=== PATIENT | female | born 1930 | race Caucasian/White ===

== ENCOUNTER → 2017-01-30 | Outpatient (CLI) | payer MEDICARE, OTHER ==
[~2017-01-30] MED LIST: ALLO100T30 PO; ATOR10TA9 PO; DIVA250T6 PO; ERGO500017 PO; ISOS60TA36 PO; LISI-167 PO; MULT-717 PO
== END | disposition home or self-care (01) ==
LOC: CVU 07:26
PROVIDERS: ATTEND Internal Medicine Cardiovascular Disease
DX: I65.23 Occlusion and stenosis of bilateral carotid arteries (principal); I71.9 Aortic aneurysm of unspecified site, without rupture; F17.200 Nicotine dependence, unspecified, uncomplicated; I08.3 Combined rheumatic disorders of mitral, aortic and tricuspid valves; I74.5 Embolism and thrombosis of iliac artery
CPT/HCPCS: 93306; 93880; 93978

== ENCOUNTER 2017-02-08 19:40 | Inpatient (IN) | payer MEDICARE, OTHER ==
[~2017-02-08] VITALS: Ht 160 cm; Wt 57.3 kg
[2017-02-08] MEDS ORDERED: ONDANSETRON 2MG/ML, 2ML ONE (20:13)
[2017-02-08] MEDS ORDERED: MORPHINE SULFATE 4 MG/ML, 1ML ONE (20:13)
[2017-02-08] MEDS ORDERED: ONDANSETRON 2MG/ML, 2ML IVPush ONE (20:30)
[2017-02-08] MEDS ORDERED: SODIUM CHLORIDE 0.9% 1,000ML IVBOLUS ONE (20:30)
[2017-02-08] MEDS ORDERED: MORPHINE SULFATE 4 MG/ML, 1ML IVPush PRN (20:30)
[2017-02-08 21:16] LABS: ASPARTATE AMINO TRANSFERASE 54 U/L (15-37); BLOOD UREA NITROGEN 19 mg/dL (7-18)
[2017-02-08 21:24] LABS: LARGE PLATELETS 1+
[2017-02-08] MEDS ORDERED: CARV3.122 PO (21:44)
[2017-02-08] MEDS ORDERED: GABA300C10 PO (21:44)
[2017-02-08] MEDS ORDERED: AMLO5TAB2 PO (21:44)
[2017-02-08] MEDS ORDERED: LISI40TA PO (21:44)
[2017-02-08 22:15] LABS: PATH.CAST-FLAG NOT PRESENT; SPERM-FLAG NOT PRESENT; SRC-FLAG NOT PRESENT; XTAL-FLAG NOT PRESENT; YLC-FLAG NOT PRESENT
[2017-02-09] VITALS: BP 124/79
[2017-02-09] MEDS ORDERED: TRAZODONE 50MG TABLET PO PRN (01:00)
[2017-02-09] MEDS ORDERED: MORPHINE SULFATE 4 MG/ML, 1ML IVPush PRN (01:00)
[2017-02-09] MEDS ORDERED: GUAIFENESIN/DM 200-20MG, 10ML UDC PO PRN (01:00)
[2017-02-09] MEDS ORDERED: ONDANSETRON 2MG/ML, 2ML IVP PRN (01:00)
[2017-02-09] MEDS: SODIUM CHLORIDE 0.9% 1,000 ML IV SCH ×2 (01:03→12:44)
[2017-02-09] MEDS: GABAPENTIN 300 MG CAPSULE PO SCH ×4 (01:03→23:06)
[2017-02-09 04:14] VITALS: BP 120/74
[2017-02-09 05:27] LABS: BLOOD UREA NITROGEN 26 mg/dL (7-18)
[2017-02-09 08:42] VITALS: BP 129/84
[2017-02-09] MEDS: FAMOTIDINE 20 MG TABLET PO SCH ×2 (09:38→23:07)
[2017-02-09] MEDS: LISINOPRIL 20 MG TABLET PO SCH (09:39)
[2017-02-09] MEDS: MULTIVITAMIN 1 TABLET PO SCH (09:40)
[2017-02-09] MEDS: CARVEDILOL 3.125 MG TABLET PO SCH ×2 (09:40→23:42)
[2017-02-09] MEDS: ISOSORBIDE MONONITRATE ER 60 MG TABLET PO SCH (09:40)
[2017-02-09] MEDS: DIVALPROEX 250 MG TABLET.DR PO SCH ×2 (09:40→23:40)
[2017-02-09] MEDS: ALLOPURINOL 100 MG TABLET PO SCH (09:41)
[2017-02-09] MEDS: AMLODIPINE 5 MG TABLET PO SCH (09:41)
[2017-02-09] MEDS: HYDROcodone/APAP 5/325 TABLET PO PRN ×2 (09:42→16:29)
[2017-02-09 12:54] VITALS: BP 126/80
[2017-02-09 19:27] VITALS: BP 96/63
[2017-02-09] MEDS: ATORVASTATIN 10 MG TABLET PO SCH (23:03)
[2017-02-09 23:21] VITALS: BP 116/72
[2017-02-10 02:37] VITALS: BP 116/73
[2017-02-10 09:16] VITALS: BP 108/72
[2017-02-10] MEDS: MULTIVITAMIN 1 TABLET PO SCH (09:24)
[2017-02-10] MEDS: ALLOPURINOL 100 MG TABLET PO SCH (09:24)
[2017-02-10] MEDS: ISOSORBIDE MONONITRATE ER 60 MG TABLET PO SCH (09:24)
[2017-02-10] MEDS: GABAPENTIN 300 MG CAPSULE PO SCH ×3 (09:24→19:52)
[2017-02-10] MEDS: CARVEDILOL 3.125 MG TABLET PO SCH ×2 (09:25→19:53)
[2017-02-10] MEDS: FAMOTIDINE 20 MG TABLET PO SCH ×2 (09:26→19:52)
[2017-02-10] MEDS: DIVALPROEX 250 MG TABLET.DR PO SCH ×2 (09:26→19:52)
[2017-02-10] MEDS: AMLODIPINE 5 MG TABLET PO SCH (09:26)
[2017-02-10] MEDS: LISINOPRIL 20 MG TABLET PO SCH (09:27)
[2017-02-10 13:33] VITALS: BP 95/57
[2017-02-10 19:32] VITALS: BP 100/63
[2017-02-10] MEDS: ATORVASTATIN 10 MG TABLET PO SCH (19:52)
[2017-02-11 02:29] VITALS: BP 94/54
[2017-02-11] MEDS: HYDROcodone/APAP 5/325 TABLET PO PRN ×2 (04:17→09:05)
[2017-02-11 05:45] LABS: BLOOD UREA NITROGEN 23 mg/dL (7-18)
[2017-02-11 06:50] VITALS: BP 92/56
[2017-02-11] MEDS: CARVEDILOL 3.125 MG TABLET PO SCH (09:00)
[2017-02-11] MEDS: ISOSORBIDE MONONITRATE ER 60 MG TABLET PO SCH (09:00)
[2017-02-11] MEDS: LISINOPRIL 20 MG TABLET PO SCH (09:00)
[2017-02-11 09:02] VITALS: BP 94/53
[2017-02-11] MEDS: ALLOPURINOL 100 MG TABLET PO SCH (09:05)
[2017-02-11] MEDS: GABAPENTIN 300 MG CAPSULE PO SCH ×2 (09:05→16:00)
[2017-02-11] MEDS: FAMOTIDINE 20 MG TABLET PO SCH (09:06)
[2017-02-11] MEDS: MULTIVITAMIN 1 TABLET PO SCH (09:06)
[2017-02-11] MEDS: AMLODIPINE 5 MG TABLET PO SCH (09:06)
[2017-02-11] MEDS: DIVALPROEX 250 MG TABLET.DR PO SCH (09:06)
[2017-02-11] MEDS ORDERED: HYDR-3240 PO (11:13)
[2017-02-11] MEDS ORDERED: DOCU-30 PO (11:14)
[2017-02-11] MEDS ORDERED: ENOX40SY4 SQ (11:15)
[2017-02-11] MEDS: DOCUSATE 100 MG CAPSULE PO SCH (12:18)
[2017-02-11] MEDS: ENOXAPARIN 40 MG/0.4 ML SQ SCH (12:18)
[2017-02-11 13:36] VITALS: BP 99/62
[2017-02-11 19:57] VITALS: BP 160/95
[2017-02-12] MEDS: FAMOTIDINE 20 MG TABLET PO SCH ×2 (00:18→08:58)
[2017-02-12] MEDS: DOCUSATE 100 MG CAPSULE PO SCH ×2 (00:18→08:56)
[2017-02-12] MEDS: HYDROcodone/APAP 5/325 TABLET PO PRN ×2 (00:18→11:43)
[2017-02-12] MEDS: GABAPENTIN 300 MG CAPSULE PO SCH ×2 (00:18→08:57)
[2017-02-12] MEDS: DIVALPROEX 250 MG TABLET.DR PO SCH ×2 (00:19→08:57)
[2017-02-12] MEDS: ATORVASTATIN 10 MG TABLET PO SCH (00:19)
[2017-02-12] MEDS: CARVEDILOL 3.125 MG TABLET PO SCH ×2 (00:19→08:56)
[2017-02-12 02:03] VITALS: BP_SYST 85; BP_SYST 88; BP_DIAS 52; BP_DIAS 54
[2017-02-12 02:20] VITALS: BP 95/56
[2017-02-12 04:25] VITALS: BP 121/71
[2017-02-12 07:26] VITALS: BP 101/67
[2017-02-12] MEDS: ISOSORBIDE MONONITRATE ER 60 MG TABLET PO SCH (08:57)
[2017-02-12] MEDS: MULTIVITAMIN 1 TABLET PO SCH (08:58)
[2017-02-12] MEDS: LISINOPRIL 20 MG TABLET PO SCH (08:59)
[2017-02-12] MEDS: AMLODIPINE 5 MG TABLET PO SCH (08:59)
[2017-02-12] MEDS: ALLOPURINOL 100 MG TABLET PO SCH (09:00)
[2017-02-12] MEDS ORDERED: ERGOCALCIFEROL 50,000 UNIT CAPSULE PO SCH (09:00)
[2017-02-12] MEDS: ENOXAPARIN 40 MG/0.4 ML SQ SCH (11:44)
[2017-02-12 13:08] VITALS: BP 92/47
[2017-02-19] MEDS ORDERED: LACT1CAP35 PO (18:18)
[2017-02-19] MEDS ORDERED: NITR100C56 PO (18:18)
[2017-02-19] MEDS ORDERED: MULT-108 PO (18:18)
[2017-02-25] MEDS ORDERED: GUAI600T22 PO (10:30)
[2017-02-25] MEDS ORDERED: AMPI3VIA IV (10:30)
[2017-02-25] MEDS ORDERED: PRED20TA PO (10:30)
== END 2017-02-12 15:15 | DRG 535 ==
LOC: ED 22:08 → EDIP 22:28 → 4NOR 23:40
PROVIDERS: ADMIT Internal Medicine; ATTEND Internal Medicine
PROC: 0T9B70Z Drainage of Bladder with Drainage Device, Via Natural or Artificial Opening (ICD-10-PCS; principal; 2017-02-08)
DX: S32.810A Multiple fractures of pelvis with stable disruption of pelvic ring, initial encounter for closed fracture (principal); K66.1 Hemoperitoneum; S32.19XA Other fracture of sacrum, initial encounter for closed fracture; E87.1 Hypo-osmolality and hyponatremia; I10 Essential (primary) hypertension; D69.6 Thrombocytopenia, unspecified; E78.5 Hyperlipidemia, unspecified; F17.210 Nicotine dependence, cigarettes, uncomplicated; G89.29 Other chronic pain; K59.00 Constipation, unspecified; M41.86 Other forms of scoliosis, lumbar region; M43.12 Spondylolisthesis, cervical region; M46.90 Unspecified inflammatory spondylopathy, site unspecified; W01.0XXA Fall on same level from slipping, tripping and stumbling without subsequent striking against object, initial encounter; Z82.49 Family history of ischemic heart disease and other diseases of the circulatory system; Y92.009 Unspecified place in unspecified non-institutional (private) residence as the place of occurrence of the external cause; Z88.8 Allergy status to other drugs, medicaments and biological substances; Y93.89 Activity, other specified; Y99.8 Other external cause status
CPT/HCPCS: 36415; 70450; 71010; 72110; 72125; 72190; 72192; 80048; 80053; 81001; 85025; 93005; 96374; 96375; J1650; J2405; J7030

== ENCOUNTER 2017-07-13 13:24 | Inpatient (IN) | payer MEDICARE, OTHER ==
[~2017-07-13] VITALS: Ht 160 cm; Wt 58.7 kg
[~2017-07-13 13:24] MED LIST changes: +AMLO5TAB2 PO; +AMPI3VIA IV; +CARV3.122 PO; +DOCU-131 PO; +ENOX40SY4 SQ; +GABA300C10 PO; +GUAI600T31 PO; +HYDR-3240 PO; +LACT1CAP35 PO; +LISI40TA PO; +MULT-108 PO; +NITR100C56 PO; +PRED20TA PO
[2017-07-13 14:03] LABS: HEMATOCRIT 46.2 % (34.6-47.8); HEMOGLOBIN 15.1 g/dL (11.7-16.4)
[2017-07-13 14:12] LABS: BLOOD UREA NITROGEN 9 mg/dL (7-18)
[2017-07-13] MEDS ORDERED: MORPHINE SULFATE 4 MG/ML, 1ML ONE (14:54)
[2017-07-13] MEDS ORDERED: ONDANSETRON 2MG/ML, 2ML ONE (14:54)
[2017-07-13] MEDS ORDERED: ONDANSETRON 2MG/ML, 2ML IVPush ONE (15:00)
[2017-07-13] MEDS ORDERED: morphine SULFATE 10 MG/ML, 1ML IVPush ONE (15:00)
[2017-07-13 17:00] VITALS: BP 212/115
[2017-07-13] MEDS ORDERED: ONDANSETRON ODT 4 MG PO PRN (17:00)
[2017-07-13] MEDS ORDERED: POLYETHYLENE GLYCOL 17 GM PACKET PO PRN (17:00)
[2017-07-13] MEDS ORDERED: GUAIFENESIN/DM 200-20MG, 10ML UDC PO PRN (17:00)
[2017-07-13] MEDS ORDERED: ONDANSETRON 2MG/ML, 2ML IVPush PRN ×2 (17:00→21:30)
[2017-07-13] MEDS ORDERED: LABETALOL 5MG/ML, 20ML IVPush PRN (17:00)
[2017-07-13 17:13] VITALS: BP 212/120
[2017-07-13] MEDS ORDERED: POTASSIUM CHLORIDE 20 MEQ, MAGNESIUM SULFATE 1 GM, FOLIC ACID 1 MG, THIAMINE 100 MG, MV... IV SCH (17:30)
[2017-07-13] MEDS ORDERED: ALBUTEROL/IPRATROPIUM 2.5MG/0.5MG, 3 ML NPPB PRN (17:30)
[2017-07-13] MEDS: morphine SULFATE 10 MG/ML, 1ML IVPush PRN (17:37)
[2017-07-13] MEDS ORDERED: FENTANYL PF 100 MCG/2ML ONE (19:07)
[2017-07-13] MEDS ORDERED: MIDAZOLAM 1 MG/ML, 2ML ONE (19:07)
[2017-07-13] MEDS ORDERED: CEFAZOLIN 1,000 MG ONE (19:08)
[2017-07-13] MEDS ORDERED: PROPOFOL 10 MG/ML, 20ML ONE (19:08)
[2017-07-13] MEDS ORDERED: EPHEDRINE 50 MG/ML, 1ML ONE (19:08)
[2017-07-13] MEDS: CEFAZOLIN PMX 1GM/50ML 50 ML IV SCH (19:15)
[2017-07-13] MEDS ORDERED: ROPIvacaine/PF 0.5%, 30 ML ONE (19:45)
[2017-07-13] MEDS ORDERED: KETOROLAC 60 MG/2 ML ONE (19:45)
[2017-07-13] MEDS ORDERED: EPINEPHRINE 1 MG/ML, 1ML ONE (19:45)
[2017-07-13] MEDS ORDERED: ROPIvacaine/PF 0.5%, 20 ML ONE (19:45)
[2017-07-13] MEDS ORDERED: VANCOMYCIN 1,000 MG ONE (19:45)
[2017-07-13] MEDS ORDERED: TRANEXAMIC ACID 100 MG/ML, 10ML ONE (19:45)
[2017-07-13] MEDS: CARVEDILOL 3.125 MG TABLET PO SCH (21:00)
[2017-07-13] MEDS: ASPIRIN 81 MG TABLET CHEW PO SCH (21:00)
[2017-07-13] MEDS ORDERED: FENTANYL PF 100 MCG/2ML IV PRN (21:30)
[2017-07-13] MEDS ORDERED: morphine SULFATE 10 MG/ML, 1ML IV PRN (21:30)
[2017-07-13] MEDS ORDERED: hydrALAzine 20 MG/ML, 1ML IV PRN (21:30)
[2017-07-13] MEDS ORDERED: ACETAMINOPHEN 325 MG TABLET PO PRN (21:30)
[2017-07-13] MEDS ORDERED: LABETALOL 5MG/ML, 20ML IV PRN (21:30)
[2017-07-13] MEDS ORDERED: HYDROcodone/APAP 7.5-325MG/15ML UDC PO PRN (21:30)
[2017-07-13] MEDS ORDERED: OXYcodone 5 MG/5 ML ORAL.SOL UDC PO PRN (21:30)
[2017-07-13] MEDS ORDERED: OXYcodone 5 MG/5 ML ORAL.SOL UDC ONE (21:43)
[2017-07-13] MEDS ORDERED: ACETAMINOPHEN 650 MG/20.3 ML UDC ONE (21:43)
[2017-07-13 23:00] VITALS: BP 89/66
[2017-07-14] MEDS: GABAPENTIN 300 MG CAPSULE PO SCH ×4 (00:17→22:37)
[2017-07-14] MEDS: DIVALPROEX 250 MG TABLET.DR PO SCH ×3 (00:17→22:38)
[2017-07-14] MEDS: ATORVASTATIN 10 MG TABLET PO SCH ×2 (00:17→22:37)
[2017-07-14] MEDS: morphine SULFATE 10 MG/ML, 1ML IVPush PRN ×2 (03:34→10:44)
[2017-07-14] MEDS: CEFAZOLIN PMX 1GM/50ML 50 ML IV SCH (03:34)
[2017-07-14 03:40] VITALS: BP 104/61
[2017-07-14 05:55] LABS: HEMATOCRIT 41.4 % (34.6-47.8); HEMOGLOBIN 13.9 g/dL (11.7-16.4); WHITE BLOOD COUNT 7.9 x10^3/uL (3.4-10)
[2017-07-14 06:13] LABS: ASPARTATE AMINO TRANSFERASE 19 U/L (15-37); BLOOD UREA NITROGEN 13 mg/dL (7-18)
[2017-07-14 06:47] VITALS: BP 91/49
[2017-07-14] MEDS ORDERED: SENNA/DOCUSATE TABLET PO SCH (09:00)
[2017-07-14] MEDS ORDERED: ISOSORBIDE MONONITRATE ER 60 MG TABLET PO SCH (09:00)
[2017-07-14] MEDS: CARVEDILOL 3.125 MG TABLET PO SCH ×2 (09:00→21:00)
[2017-07-14] MEDS ORDERED: LISINOPRIL 20 MG TABLET PO SCH (09:00)
[2017-07-14] MEDS: FOLIC ACID 1 MG TABLET PO SCH (11:27)
[2017-07-14] MEDS: SENNA/DOCUSATE TABLET PO SCH (11:29)
[2017-07-14] MEDS: THIAMINE 100MG TABLET PO SCH (11:30)
[2017-07-14] MEDS: ASPIRIN 81 MG TABLET CHEW PO SCH ×2 (11:30→22:38)
[2017-07-14] MEDS: ALLOPURINOL 100 MG TABLET PO SCH (11:34)
[2017-07-14 13:45] VITALS: BP 90/53
[2017-07-14] MEDS ORDERED: PHARMACY MAY ADJ FOR RENAL FX MC PRN (16:00)
[2017-07-14] MEDS ORDERED: LORazepam 1MG TABLET PO PRN ×4 (16:00)
[2017-07-14] MEDS ORDERED: LORazepam 0.5MG TABLET PO PRN (16:00)
[2017-07-14] MEDS ORDERED: LORazepam 2 MG/ML, 1ML IV PRN ×5 (16:00)
[2017-07-14 20:54] VITALS: BP 91/55
[2017-07-15 02:18] VITALS: BP 91/48
[2017-07-15 05:31] LABS: HEMATOCRIT 36.2 % (34.6-47.8); HEMOGLOBIN 12.2 g/dL (11.7-16.4); WHITE BLOOD COUNT 6.4 x10^3/uL (3.4-10)
[2017-07-15 05:49] LABS: BLOOD UREA NITROGEN 26 mg/dL (7-18)
[2017-07-15 07:05] VITALS: BP 91/46
[2017-07-15] MEDS: ASPIRIN 81 MG TABLET CHEW PO SCH ×2 (08:02→20:31)
[2017-07-15] MEDS: FOLIC ACID 1 MG TABLET PO SCH (08:02)
[2017-07-15] MEDS: DIVALPROEX 250 MG TABLET.DR PO SCH ×2 (08:02→20:31)
[2017-07-15] MEDS: SENNA/DOCUSATE TABLET PO SCH (08:03)
[2017-07-15] MEDS: GABAPENTIN 300 MG CAPSULE PO SCH (08:03)
[2017-07-15] MEDS: ALLOPURINOL 100 MG TABLET PO SCH (08:03)
[2017-07-15] MEDS: THIAMINE 100MG TABLET PO SCH (08:03)
[2017-07-15] MEDS: ISOSORBIDE MONONITRATE ER 60 MG TABLET PO SCH (08:03)
[2017-07-15] MEDS: CARVEDILOL 3.125 MG TABLET PO SCH ×2 (08:03→20:32)
[2017-07-15] MEDS: HYDROcodone/APAP 5/325 TABLET PO PRN (08:06)
[2017-07-15] MEDS ORDERED: MAGNESIUM SULFATE PMX 2GM/50ML 50 ML IV ONE (10:00)
[2017-07-15] MEDS: SODIUM CHLORIDE 0.9% 250 ML IV SCH ×2 (10:51→11:00)
[2017-07-15 14:04] VITALS: BP 100/62
[2017-07-15] MEDS: GABAPENTIN 100 MG CAPSULE PO SCH ×2 (16:27→20:31)
[2017-07-15 19:10] VITALS: BP 132/83
[2017-07-15] MEDS: ATORVASTATIN 10 MG TABLET PO SCH (20:31)
[2017-07-15] MEDS: SODIUM CHLORIDE 0.9% 1,000 ML IV SCH (20:31)
[2017-07-16 02:00] VITALS: BP 146/82
[2017-07-16 05:34] LABS: BLOOD UREA NITROGEN 38 mg/dL (7-18)
[2017-07-16 05:45] LABS: HEMATOCRIT 31.8 % (34.6-47.8); HEMOGLOBIN 10.8 g/dL (11.7-16.4); WHITE BLOOD COUNT 9.5 x10^3/uL (3.4-10)
[2017-07-16] MEDS: FOLIC ACID 1 MG TABLET PO SCH (07:29)
[2017-07-16] MEDS: DIVALPROEX 250 MG TABLET.DR PO SCH ×2 (07:29→20:49)
[2017-07-16] MEDS: HYDROcodone/APAP 5/325 TABLET PO PRN ×2 (07:29→20:49)
[2017-07-16] MEDS: ISOSORBIDE MONONITRATE ER 60 MG TABLET PO SCH (07:29)
[2017-07-16] MEDS: ALLOPURINOL 100 MG TABLET PO SCH (07:29)
[2017-07-16] MEDS: THIAMINE 100MG TABLET PO SCH (07:29)
[2017-07-16] MEDS: CARVEDILOL 3.125 MG TABLET PO SCH ×2 (07:30→20:49)
[2017-07-16] MEDS: SODIUM CHLORIDE 0.9% 1,000 ML IV SCH ×2 (07:30→20:50)
[2017-07-16] MEDS: ASPIRIN 81 MG TABLET CHEW PO SCH ×2 (07:30→20:49)
[2017-07-16] MEDS: SENNA/DOCUSATE TABLET PO SCH (07:33)
[2017-07-16] MEDS: GABAPENTIN 100 MG CAPSULE PO SCH ×3 (07:33→20:49)
[2017-07-16 07:50] VITALS: BP 146/84
[2017-07-16 13:35] VITALS: BP 120/69
[2017-07-16 20:00] VITALS: BP 164/92
[2017-07-16] MEDS: ATORVASTATIN 10 MG TABLET PO SCH (20:49)
[2017-07-17 04:17] VITALS: BP 170/96
[2017-07-17 05:50] LABS: HEMOGLOBIN 10.3 g/dL (11.7-16.4); WHITE BLOOD COUNT 10.4 x10^3/uL (3.4-10)
[2017-07-17 05:55] LABS: BLOOD UREA NITROGEN 33 mg/dL (7-18)
[2017-07-17 06:55] VITALS: BP 156/89
[2017-07-17] MEDS: ALLOPURINOL 100 MG TABLET PO SCH (07:31)
[2017-07-17] MEDS: SENNA/DOCUSATE TABLET PO SCH (07:31)
[2017-07-17] MEDS: ASPIRIN 81 MG TABLET CHEW PO SCH ×2 (07:32→20:33)
[2017-07-17] MEDS: CARVEDILOL 3.125 MG TABLET PO SCH ×2 (07:32→20:34)
[2017-07-17] MEDS: HYDROcodone/APAP 5/325 TABLET PO PRN ×3 (07:32→16:12)
[2017-07-17] MEDS: GABAPENTIN 100 MG CAPSULE PO SCH ×3 (07:32→20:34)
[2017-07-17] MEDS: ISOSORBIDE MONONITRATE ER 60 MG TABLET PO SCH (07:32)
[2017-07-17] MEDS: DIVALPROEX 250 MG TABLET.DR PO SCH ×2 (07:32→20:34)
[2017-07-17] MEDS: SODIUM CHLORIDE 0.9% 1,000 ML IV SCH (07:35)
[2017-07-17] MEDS: FOLIC ACID 1 MG TABLET PO SCH (07:35)
[2017-07-17] MEDS: THIAMINE 100MG TABLET PO SCH (07:35)
[2017-07-17 14:29] VITALS: BP 118/76
[2017-07-17] MEDS ORDERED: CEFTRIAXONE PMX 1GM/50ML 50 ML IV SCH (17:00)
[2017-07-17 19:17] VITALS: BP 137/79
[2017-07-17] MEDS: ATORVASTATIN 10 MG TABLET PO SCH (20:34)
[2017-07-18 02:00] VITALS: BP 193/89
[2017-07-18 06:21] LABS: HEMATOCRIT 29.3 % (34.6-47.8); HEMOGLOBIN 9.8 g/dL (11.7-16.4); WHITE BLOOD COUNT 9.7 x10^3/uL (3.4-10)
[2017-07-18 06:30] LABS: BLOOD UREA NITROGEN 25 mg/dL (7-18)
[2017-07-18 08:10] VITALS: BP 160/83
[2017-07-18] MEDS ORDERED: FUROSEMIDE 20 MG TABLET PO SCH (09:00)
[2017-07-18] MEDS: SENNA/DOCUSATE TABLET PO SCH (09:52)
[2017-07-18] MEDS: FOLIC ACID 1 MG TABLET PO SCH (09:52)
[2017-07-18] MEDS: DIVALPROEX 250 MG TABLET.DR PO SCH (09:52)
[2017-07-18] MEDS: GABAPENTIN 100 MG CAPSULE PO SCH ×2 (09:52→16:00)
[2017-07-18] MEDS: THIAMINE 100MG TABLET PO SCH (09:52)
[2017-07-18] MEDS: ISOSORBIDE MONONITRATE ER 60 MG TABLET PO SCH (09:52)
[2017-07-18] MEDS: ALLOPURINOL 100 MG TABLET PO SCH (09:52)
[2017-07-18] MEDS: CARVEDILOL 3.125 MG TABLET PO SCH (09:53)
[2017-07-18] MEDS: ASPIRIN 81 MG TABLET CHEW PO SCH (09:53)
[2017-07-18] MEDS ORDERED: GABA-826 PO (10:31)
[2017-07-18] MEDS ORDERED: FOLI-17 PO (10:31)
[2017-07-18] MEDS ORDERED: FURO20TA3 PO (10:31)
[2017-07-18] MEDS ORDERED: ASPI-515 PO (10:31)
[2017-07-18] MEDS ORDERED: THIA100T6 PO (10:31)
[2017-07-18] MEDS ORDERED: CEFD300C37 PO (10:33)
[2017-07-18 12:30] VITALS: BP 159/98
[2017-07-18 15:45] VITALS: BP 143/96
== END 2017-07-18 16:12 | DRG 469 ==
LOC: OR 15:08 → 4NOR 15:10 → OR 15:34 → 4NOR 16:11 → OR 16:58 → 4WST 18:38
PROVIDERS: ADMIT Hospitalist; ATTEND Hospitalist
PROC: 0SR90J9 Replacement of Right Hip Joint with Synthetic Substitute, Cemented, Open Approach (ICD-10-PCS; principal; 2017-07-13 19:00)
DX: S72.001A Fracture of unspecified part of neck of right femur, initial encounter for closed fracture (principal); N17.0 Acute kidney failure with tubular necrosis; I50.30 Unspecified diastolic (congestive) heart failure; E87.1 Hypo-osmolality and hyponatremia; N39.0 Urinary tract infection, site not specified; I11.0 Hypertensive heart disease with heart failure; J44.9 Chronic obstructive pulmonary disease, unspecified; Z96.649 Presence of unspecified artificial hip joint; W07.XXXA Fall from chair, initial encounter; M10.9 Gout, unspecified; F17.200 Nicotine dependence, unspecified, uncomplicated; I71.4 Abdominal aortic aneurysm, without rupture; E78.5 Hyperlipidemia, unspecified; F10.10 Alcohol abuse, uncomplicated; F17.210 Nicotine dependence, cigarettes, uncomplicated; F41.1 Generalized anxiety disorder; G40.909 Epilepsy, unspecified, not intractable, without status epilepticus; K21.9 Gastro-esophageal reflux disease without esophagitis; Z96.641 Presence of right artificial hip joint; Z96.652 Presence of left artificial knee joint; Z90.710 Acquired absence of both cervix and uterus
CPT/HCPCS: 36415; 70450; 71010; 72170; 76001; 76770; 80048; 80053; 80307; 81001; 82040; 82570; 83735; 84300; 84439; 85025; 85610; 85730; 87077; 87086; 87186; 93005; 93306; 94640; 96374; 96375; C1713; J0171; J0690; J0696; J1885; J2250; J2405; J2704; J2795; J3010; J3370; J3411; J3475; J3480; J7042; J7620; C1762; C1776; G0479; J2270; J7030; J7050; J7512

== ENCOUNTER 2017-07-25 16:40 | Inpatient (IN) | payer MEDICARE, OTHER ==
[~2017-07-25] VITALS: Ht 160 cm; Wt 62.0 kg
[~2017-07-25 16:40] MED LIST changes: +ASPI-515 PO; +CEFD300C37 PO; +FOLI-17 PO; +FURO20TA3 PO; +GABA-826 PO; +THIA100T6 PO
[2017-07-25 17:47] VITALS: BP 120/79
[2017-07-25] MEDS ORDERED: TRANEXAMIC ACID 100 MG/ML, 10ML ONE ×3 (18:54→20:18)
[2017-07-25] MEDS ORDERED: VANCOMYCIN 1,000 MG ONE (18:54)
[2017-07-25] MEDS ORDERED: PLEASE ENTER HEIGHT AND WEIGHT MC SCH ×2 (19:30→20:00)
[2017-07-25] MEDS ORDERED: DIPHENHYDRAMINE 25 MG CAPSULE PO PRN (19:30)
[2017-07-25] MEDS ORDERED: BISACODYL 10 MG SUPP PR PRN (19:30)
[2017-07-25] MEDS ORDERED: ZOLPIDEM 5MG TABLET PO PRN (19:30)
[2017-07-25] MEDS ORDERED: ACETAMINOPHEN 650 MG/20.3 ML UDC PO PRN (19:30)
[2017-07-25] MEDS ORDERED: ONDANSETRON 2MG/ML, 2ML IVPush PRN ×2 (19:30→21:00)
[2017-07-25] MEDS ORDERED: ONDANSETRON 4 MG TABLET PO PRN (19:30)
[2017-07-25] MEDS ORDERED: OXYcodone 5 MG/5 ML ORAL.SOL UDC PO PRN ×2 (19:30→21:00)
[2017-07-25] MEDS ORDERED: MAGNESIUM HYDROXIDE 8%, 30ML UDC PO PRN (19:30)
[2017-07-25] MEDS ORDERED: ONDANSETRON 2MG/ML, 2ML IV PRN (19:30)
[2017-07-25] MEDS ORDERED: SENNA/DOCUSATE TABLET PO PRN (19:30)
[2017-07-25] MEDS ORDERED: HYDROcodone/APAP 7.5-325MG/15ML UDC PO PRN (19:30)
[2017-07-25] MEDS ORDERED: HYDROmorphone 1 MG/ML, 1ML IV PRN (19:30)
[2017-07-25] MEDS ORDERED: HYDROcodone/APAP 5/325 TABLET PO PRN (19:30)
[2017-07-25] MEDS ORDERED: ACETAMINOPHEN 325 MG TABLET PO PRN ×2 (19:30→21:00)
[2017-07-25] MEDS ORDERED: EPINEPHRINE 1 MG/ML, 1ML ONE (19:38)
[2017-07-25] MEDS ORDERED: KETOROLAC 60 MG/2 ML ONE (19:38)
[2017-07-25] MEDS ORDERED: ROPIvacaine/PF 0.5%, 30 ML ONE (19:39)
[2017-07-25] MEDS ORDERED: FENTANYL PF 250 MCG/5ML ONE (19:41)
[2017-07-25] MEDS ORDERED: ONDANSETRON 2MG/ML, 2ML ONE (19:41)
[2017-07-25] MEDS ORDERED: GLYCOPYRROLATE 0.4 MG/2 ML, 2ML ONE (19:41)
[2017-07-25] MEDS ORDERED: SUCCINYLCHOLINE 20 MG/ML, 10ML ONE (19:41)
[2017-07-25] MEDS ORDERED: PHENYLEPHRINE 10 MG/ML ONE (19:41)
[2017-07-25] MEDS ORDERED: CEFAZOLIN 1,000 MG ONE (19:41)
[2017-07-25] MEDS ORDERED: PROPOFOL 10 MG/ML, 20ML ONE (19:41)
[2017-07-25] MEDS: CEFAZOLIN PMX 2GM/50ML 50 ML IVPB SCH (19:50)
[2017-07-25] MEDS ORDERED: VANCOMYCIN 1,100 MG in SODIUM CHLORIDE 0.9% 250 ML IV ONE (20:01)
[2017-07-25] MEDS ORDERED: hydrALAzine 20 MG/ML, 1ML IV PRN (21:00)
[2017-07-25] MEDS ORDERED: MORPHINE SULFATE 4 MG/ML, 1ML ONE (21:00)
[2017-07-25] MEDS ORDERED: FENTANYL PF 100 MCG/2ML IV PRN (21:00)
[2017-07-25] MEDS ORDERED: DOCUSATE 100 MG CAPSULE PO SCH (21:00)
[2017-07-25] MEDS: CARVEDILOL 3.125 MG TABLET PO SCH (21:00)
[2017-07-25] MEDS: morphine SULFATE 10 MG/ML, 1ML IV PRN ×2 (21:01→21:10)
[2017-07-25] MEDS: LABETALOL 5MG/ML, 20ML IV PRN ×3 (21:10→21:30)
[2017-07-25] MEDS ORDERED: OXYcodone 5 MG/5 ML ORAL.SOL UDC ONE (21:17)
[2017-07-25] MEDS ORDERED: FENTANYL PF 100 MCG/2ML ONE (21:29)
[2017-07-25] MEDS: FENTANYL PF 100 MCG/2ML IV PRN ×2 (21:30→21:35)
[2017-07-25 22:09] VITALS: BP 141/85
[2017-07-26] MEDS: ATORVASTATIN 10 MG TABLET PO SCH ×2 (00:25→20:07)
[2017-07-26] MEDS: NS + 20MEQ KCL 1,000 ML IV SCH ×2 (00:25→15:18)
[2017-07-26] MEDS: GABAPENTIN 100 MG CAPSULE PO SCH ×4 (00:25→20:06)
[2017-07-26] MEDS: DIVALPROEX 250 MG TABLET.DR PO SCH ×3 (00:25→20:06)
[2017-07-26] MEDS: DOCUSATE 100 MG CAPSULE PO SCH ×3 (00:25→20:06)
[2017-07-26] MEDS: GUAIFENESIN ER 600 MG TABLET PO SCH ×3 (00:26→20:07)
[2017-07-26 00:30] VITALS: BP 109/62
[2017-07-26] MEDS: CEFAZOLIN PMX 2GM/50ML 50 ML IVPB SCH ×3 (04:22→20:04)
[2017-07-26 04:27] VITALS: BP 96/54
[2017-07-26 05:22] LABS: HEMATOCRIT 30.1 % (34.6-47.8); HEMOGLOBIN 10.1 g/dL (11.7-16.4)
[2017-07-26 05:33] LABS: BLOOD UREA NITROGEN 22 mg/dL (7-18)
[2017-07-26] MEDS ORDERED: DEXAMETHASONE 4 MG/ML, 1ML IVPush SCH (06:00)
[2017-07-26 07:17] VITALS: BP_SYST 97; BP_DIAS 54; BP_DIAS 64
[2017-07-26] MEDS ORDERED: LISINOPRIL 20 MG TABLET PO SCH (09:00)
[2017-07-26] MEDS: CARVEDILOL 3.125 MG TABLET PO SCH ×2 (09:56→20:07)
[2017-07-26] MEDS: ISOSORBIDE MONONITRATE ER 60 MG TABLET PO SCH (09:57)
[2017-07-26] MEDS: ALLOPURINOL 100 MG TABLET PO SCH (09:58)
[2017-07-26] MEDS: MULTIVITAMINS/MINERALS TABLET PO SCH (09:59)
[2017-07-26] MEDS: THIAMINE 100MG TABLET PO SCH (09:59)
[2017-07-26 13:16] VITALS: BP 92/61
[2017-07-26 19:25] VITALS: BP 112/68
[2017-07-27 00:09] VITALS: BP 111/72
[2017-07-27] MEDS: NS + 20MEQ KCL 1,000 ML IV SCH (02:55)
[2017-07-27] MEDS: CEFAZOLIN PMX 2GM/50ML 50 ML IVPB SCH ×2 (04:11→11:54)
[2017-07-27 05:02] LABS: HEMATOCRIT 26.1 % (34.6-47.8); HEMOGLOBIN 8.9 g/dL (11.7-16.4)
[2017-07-27 05:11] LABS: BLOOD UREA NITROGEN 21 mg/dL (7-18)
[2017-07-27 07:13] VITALS: BP 105/69
[2017-07-27] MEDS: DOCUSATE 100 MG CAPSULE PO SCH (09:00)
[2017-07-27] MEDS: GUAIFENESIN ER 600 MG TABLET PO SCH (09:20)
[2017-07-27] MEDS: GABAPENTIN 100 MG CAPSULE PO SCH (09:20)
[2017-07-27] MEDS: THIAMINE 100MG TABLET PO SCH (09:20)
[2017-07-27] MEDS: MULTIVITAMINS/MINERALS TABLET PO SCH (09:20)
[2017-07-27] MEDS: DIVALPROEX 250 MG TABLET.DR PO SCH (09:21)
[2017-07-27] MEDS: CARVEDILOL 3.125 MG TABLET PO SCH (09:21)
[2017-07-27] MEDS: ISOSORBIDE MONONITRATE ER 60 MG TABLET PO SCH (09:21)
[2017-07-27] MEDS: ALLOPURINOL 100 MG TABLET PO SCH (09:21)
[2017-07-27 13:08] VITALS: BP 91/53
[2017-07-27] MEDS ORDERED: HYDR-3240 PO (15:23)
[2017-07-27] MEDS ORDERED: DURICEF PO (15:25)
== END 2017-07-27 15:40 | disposition home or self-care (01) | DRG 908 ==
LOC: ORIP 16:40 → 4NOR 17:22 → EDSTATUS 20:00 → DCLOUNGE 07-27 15:20
PROVIDERS: ADMIT Orthopaedic Surgery; ATTEND Orthopaedic Surgery
PROC: 0SC90ZZ Extirpation of Matter from Right Hip Joint, Open Approach (ICD-10-PCS; principal; 2017-07-25 20:00)
DX: L76.32 Postprocedural hematoma of skin and subcutaneous tissue following other procedure (principal); E87.1 Hypo-osmolality and hyponatremia; I10 Essential (primary) hypertension; E78.5 Hyperlipidemia, unspecified; Y83.8 Other surgical procedures as the cause of abnormal reaction of the patient, or of later complication, without mention of misadventure at the time of the procedure; Z79.899 Other long term (current) drug therapy
CPT/HCPCS: 36415; 80048; 85014; 85018; 85651; 86140; 87070; 87075; 87176; 87205; J0171; J0690; J1100; J1885; J2405; J2704; J2795; J3010; J3370; J3480; Q0162; J0330; J2270; J2370; J7050

== ENCOUNTER 2017-07-31 05:55 | Inpatient (IN) | payer MEDICARE, OTHER ==
[~2017-07-31] VITALS: Ht 160 cm; Wt 56.5 kg
[~2017-07-31 05:55] MED LIST changes: +DURICEF PO
[2017-07-31] MEDS ORDERED: OXYMETAZOLINE NASAL SPRAY 0.05%, 15ML ONE (06:20)
[2017-07-31] MEDS ORDERED: COCAINE TOPICAL SOLN 4%, 4ML ONE (06:20)
[2017-07-31] MEDS ORDERED: LIDOCAINE 1%, 20ML ONE (06:23)
[2017-07-31] MEDS ORDERED: OXYMETAZOLINE NASAL SPRAY 0.05%, 15ML NAS ONE (06:30)
[2017-07-31] MEDS ORDERED: BACITRACIN ZINC OINT 500U/GM, 0.9 GM ONE (06:40)
[2017-07-31 07:19] LABS: HEMATOCRIT 29.5 % (34.6-47.8); HEMOGLOBIN 9.9 g/dL (11.7-16.4); WHITE BLOOD COUNT 8.1 x10^3/uL (3.4-10)
[2017-07-31 07:33] LABS: BLOOD UREA NITROGEN 9 mg/dL (7-18)
[2017-07-31] MEDS ORDERED: ONDANSETRON 2MG/ML, 2ML ONE (07:53)
[2017-07-31] MEDS ORDERED: MORPHINE SULFATE 4 MG/ML, 1ML ONE (07:53)
[2017-07-31] MEDS: NICOTINE 21 MG/24 HR PATCH.TD24 TD SCH (08:00)
[2017-07-31] MEDS ORDERED: POLYETHYLENE GLYCOL 17 GM PACKET PO PRN (08:00)
[2017-07-31] MEDS ORDERED: ACETAMINOPHEN 325 MG TABLET PO PRN (08:00)
[2017-07-31] MEDS ORDERED: SODIUM CHLORIDE 0.9% 1,000 ML IV SCH (08:00)
[2017-07-31 08:13] LABS: HEMATOCRIT 28.8 % (34.6-47.8); HEMOGLOBIN 9.5 g/dL (11.7-16.4)
[2017-07-31 08:17] LABS: IS PT STATUS REG ER OR PRE ER? YES
[2017-07-31] MEDS ORDERED: MORPHINE SULFATE 4 MG/ML, 1ML IVPush PRN (08:30)
[2017-07-31] MEDS ORDERED: ONDANSETRON 2MG/ML, 2ML IVPush ONE (08:30)
[2017-07-31] MEDS: SENNA/DOCUSATE TABLET PO SCH (09:00)
[2017-07-31 10:14] LABS: VALPROIC ACID 45.6 mcg/mL (50.0-100.0)
[2017-07-31] MEDS: ALLOPURINOL 100 MG TABLET PO SCH (12:09)
[2017-07-31] MEDS: THIAMINE 100MG TABLET PO SCH (12:09)
[2017-07-31] MEDS: GABAPENTIN 100 MG CAPSULE PO SCH ×3 (12:09→21:40)
[2017-07-31] MEDS: SODIUM CHLORIDE 0.9% 1,000 ML IV SCH (12:10)
[2017-07-31] MEDS: FOLIC ACID 1 MG TABLET PO SCH (12:10)
[2017-07-31] MEDS: DIVALPROEX 250 MG TABLET.DR PO SCH ×2 (12:10→21:40)
[2017-07-31] MEDS ORDERED: SODIUM PHOSPHATE 20 MMOL in SODIUM CHLORIDE 0.9% 500 ML IV ONE (12:30)
[2017-07-31] MEDS ORDERED: MAGNESIUM SULFATE PMX 4GM/100M 100 ML IV ONE (12:30)
[2017-07-31] MEDS: AMPICILLIN/SULBACTAM 1,500 MG in SODIUM CHLORIDE 0.9% 50 ML IV SCH ×2 (12:52→18:05)
[2017-07-31 14:34] LABS: IS PT STATUS REG ER OR PRE ER? NO
[2017-07-31] MEDS: hydrALAzine 20 MG/ML, 1ML IVPush PRN (16:59)
[2017-07-31] MEDS: ATORVASTATIN 10 MG TABLET PO SCH (21:40)
[2017-08-01] MEDS: AMPICILLIN/SULBACTAM 1,500 MG in SODIUM CHLORIDE 0.9% 50 ML IV SCH ×4 (00:29→18:09)
[2017-08-01] MEDS: SODIUM CHLORIDE 0.9% 1,000 ML IV SCH ×2 (00:29→12:08)
[2017-08-01] MEDS ORDERED: OXYMETAZOLINE NASAL SPRAY 0.05%, 15ML ONE ×2 (02:08→03:07)
[2017-08-01] MEDS ORDERED: COCAINE TOPICAL SOLN 4%, 4ML ONE (02:09)
[2017-08-01] MEDS ORDERED: FENTANYL PF 100 MCG/2ML ONE (02:31)
[2017-08-01] MEDS ORDERED: PHENYLEPHRINE 10 MG/ML ONE (02:42)
[2017-08-01] MEDS ORDERED: SUCCINYLCHOLINE 20 MG/ML, 10ML ONE (02:42)
[2017-08-01] MEDS ORDERED: PROPOFOL 10 MG/ML, 20ML ONE (02:42)
[2017-08-01] MEDS ORDERED: OXYMETAZOLINE NASAL SPRAY 0.05%, 15ML NAS ONE (03:05)
[2017-08-01] MEDS ORDERED: ONDANSETRON 2MG/ML, 2ML IVPush PRN ×2 (04:00→04:30)
[2017-08-01] MEDS ORDERED: FENTANYL PF 100 MCG/2ML IV PRN ×2 (04:00→04:30)
[2017-08-01] MEDS ORDERED: hydrALAzine 20 MG/ML, 1ML ONE (04:10)
[2017-08-01] MEDS: hydrALAzine 20 MG/ML, 1ML IVPush PRN (04:18)
[2017-08-01] MEDS ORDERED: LABETALOL 5MG/ML, 20ML IV PRN (04:30)
[2017-08-01] MEDS ORDERED: PROMETHAZINE 25 MG/ML, 1ML IV PRN (04:30)
[2017-08-01] MEDS ORDERED: hydrALAzine 20 MG/ML, 1ML IV PRN (04:30)
[2017-08-01 04:45] VITALS: BP 132/67
[2017-08-01 06:19] LABS: HEMOGLOBIN 9.6 g/dL (11.7-16.4); WHITE BLOOD COUNT 12.3 x10^3/uL (3.4-10)
[2017-08-01 06:41] LABS: ASPARTATE AMINO TRANSFERASE 16 U/L (15-37); BLOOD UREA NITROGEN 17 mg/dL (7-18)
[2017-08-01] MEDS: NICOTINE 21 MG/24 HR PATCH.TD24 TD SCH (08:00)
[2017-08-01] MEDS: DIVALPROEX 250 MG TABLET.DR PO SCH ×2 (08:39→21:15)
[2017-08-01] MEDS: ALLOPURINOL 100 MG TABLET PO SCH (08:39)
[2017-08-01] MEDS: PANTOPRAZOLE 40 MG IV IVPush SCH (08:39)
[2017-08-01] MEDS: THIAMINE 100MG TABLET PO SCH (08:39)
[2017-08-01] MEDS: SENNA/DOCUSATE TABLET PO SCH (08:39)
[2017-08-01] MEDS: FOLIC ACID 1 MG TABLET PO SCH (08:39)
[2017-08-01] MEDS: GABAPENTIN 100 MG CAPSULE PO SCH ×3 (08:39→21:15)
[2017-08-01 20:00] VITALS: BP 134/70
[2017-08-01] MEDS: ATORVASTATIN 10 MG TABLET PO SCH (21:15)
[2017-08-02] MEDS: AMPICILLIN/SULBACTAM 1,500 MG in SODIUM CHLORIDE 0.9% 50 ML IV SCH ×4 (00:17→18:21)
[2017-08-02 02:30] VITALS: BP 131/75
[2017-08-02] MEDS: SODIUM CHLORIDE 0.9% 1,000 ML IV SCH (03:10)
[2017-08-02 08:00] VITALS: BP 146/81
[2017-08-02] MEDS: NICOTINE 21 MG/24 HR PATCH.TD24 TD SCH (08:00)
[2017-08-02] MEDS: PANTOPRAZOLE 40 MG IV IVPush SCH (09:09)
[2017-08-02] MEDS: GABAPENTIN 100 MG CAPSULE PO SCH ×3 (09:10→20:15)
[2017-08-02] MEDS: THIAMINE 100MG TABLET PO SCH (09:10)
[2017-08-02] MEDS: SENNA/DOCUSATE TABLET PO SCH (09:10)
[2017-08-02] MEDS: DIVALPROEX 250 MG TABLET.DR PO SCH ×2 (09:10→20:15)
[2017-08-02] MEDS: FOLIC ACID 1 MG TABLET PO SCH (09:10)
[2017-08-02] MEDS: ALLOPURINOL 100 MG TABLET PO SCH (09:10)
[2017-08-02 13:54] VITALS: BP 152/91
[2017-08-02 19:51] VITALS: BP 132/79
[2017-08-02] MEDS: ATORVASTATIN 10 MG TABLET PO SCH (20:15)
[2017-08-03] MEDS: AMPICILLIN/SULBACTAM 1,500 MG in SODIUM CHLORIDE 0.9% 50 ML IV SCH ×3 (00:21→12:30)
[2017-08-03 02:45] VITALS: BP 121/75
[2017-08-03 05:53] LABS: HEMOGLOBIN 7.4 g/dL (11.7-16.4); WHITE BLOOD COUNT 5.8 x10^3/uL (3.4-10)
[2017-08-03 07:02] LABS: ANISOCYTOSIS 2+; HYPOCHROMIA 1+; POIKILOCYTOSIS 1+
[2017-08-03 07:12] VITALS: BP 135/88
[2017-08-03] MEDS: NICOTINE 21 MG/24 HR PATCH.TD24 TD SCH (08:00)
[2017-08-03] MEDS ORDERED: SENNA/DOCUSATE TABLET PO SCH (09:00)
[2017-08-03] MEDS: GABAPENTIN 100 MG CAPSULE PO SCH (09:40)
[2017-08-03] MEDS: DIVALPROEX 250 MG TABLET.DR PO SCH (09:40)
[2017-08-03] MEDS: ALLOPURINOL 100 MG TABLET PO SCH (09:40)
[2017-08-03] MEDS: THIAMINE 100MG TABLET PO SCH (09:41)
[2017-08-03] MEDS: FOLIC ACID 1 MG TABLET PO SCH (09:41)
[2017-08-03 13:53] VITALS: BP_SYST 155; BP_SYST 159; BP_DIAS 71; BP_DIAS 90
== END 2017-08-03 16:25 | disposition home health service (06) | DRG 981 ==
LOC: ED 07:38 → EDIP 07:44 → CCU 09:19 → 3NE 08-02 11:01
PROVIDERS: ADMIT Internal Medicine; ATTEND Internal Medicine
PROC: 2Y41X5Z Packing of Nasal Region using Packing Material (ICD-10-PCS; principal; 2017-07-31)
PROC: 5A12012 Performance of Cardiac Output, Single, Manual (ICD-10-PCS; 2017-07-31)
PROC: 0W3Q8ZZ Control Bleeding in Respiratory Tract, Via Natural or Artificial Opening Endoscopic (ICD-10-PCS; 2017-08-01)
DX: R04.0 Epistaxis (principal); E43 Unspecified severe protein-calorie malnutrition; I45.2 Bifascicular block; I11.0 Hypertensive heart disease with heart failure; I50.32 Chronic diastolic (congestive) heart failure; D64.9 Anemia, unspecified; F17.210 Nicotine dependence, cigarettes, uncomplicated; F41.9 Anxiety disorder, unspecified; G40.909 Epilepsy, unspecified, not intractable, without status epilepticus; I71.4 Abdominal aortic aneurysm, without rupture; J44.9 Chronic obstructive pulmonary disease, unspecified; R00.1 Bradycardia, unspecified; K21.9 Gastro-esophageal reflux disease without esophagitis; Z96.641 Presence of right artificial hip joint; Z82.49 Family history of ischemic heart disease and other diseases of the circulatory system; Z68.22 Body mass index [BMI] 22.0-22.9, adult
CPT/HCPCS: 30901; 36415; 71010; 80048; 80053; 80061; 80164; 81001; 82040; 83735; 84100; 84439; 84443; 84481; 84484; 85014; 85018; 85025; 85610; 86850; 86900; 86923; 87081; 87086; 93005; 93306; 99292; J2704; J3010; C9113; J0295; J0330; J0360; J2370; J3475; J7030; J7040

== ENCOUNTER 2017-08-03 19:33 | Inpatient (IN) | payer MEDICARE, OTHER ==
[~2017-08-03] VITALS: Ht 160 cm; Wt 59.3 kg
[2017-08-03] MEDS ORDERED: ONDANSETRON 2MG/ML, 2ML ONE (20:15)
[2017-08-03] MEDS ORDERED: HYDROmorphone 1 MG/ML, 1ML ONE (20:15)
[2017-08-03] MEDS ORDERED: ONDANSETRON 2MG/ML, 2ML IVPush ONE (20:30)
[2017-08-03] MEDS ORDERED: HYDROmorphone 1 MG/ML, 1ML IVPush PRN (20:30)
[2017-08-03] MEDS ORDERED: PROPOFOL 10 MG/ML, 20ML ONE (21:42)
[2017-08-03 22:48] LABS: HEMATOCRIT 24.8 % (34.6-47.8); HEMOGLOBIN 7.9 g/dL (11.7-16.4); WHITE BLOOD COUNT 5.9 x10^3/uL (3.4-10)
[2017-08-03 23:00] LABS: BLOOD UREA NITROGEN 12 mg/dL (7-18)
[2017-08-03] MEDS ORDERED: SODIUM CHLORIDE FLUSH 10ML SYR IVF ONE (23:00)
[2017-08-03] MEDS ORDERED: SODIUM CHLORIDE FLUSH 10ML SYR IVF PRN (23:30)
[2017-08-04] VITALS (11 sets, daily range): BP systolic 91–150; BP diastolic 51–88
[2017-08-04] MEDS ORDERED: BISACODYL 10 MG SUPP PR PRN ×2 (00:30→20:00)
[2017-08-04] MEDS ORDERED: ONDANSETRON 2MG/ML, 2ML IVPush PRN ×2 (00:30→20:00)
[2017-08-04] MEDS ORDERED: ACETAMINOPHEN 325 MG TABLET PO PRN ×2 (00:30→20:00)
[2017-08-04] MEDS ORDERED: POLYETHYLENE GLYCOL 17 GM PACKET PO PRN ×2 (00:30→20:00)
[2017-08-04] MEDS ORDERED: HYDROcodone/APAP 5/325 TABLET PO PRN ×2 (00:30→20:00)
[2017-08-04] MEDS: NICOTINE 21 MG/24 HR PATCH.TD24 TD SCH (01:00)
[2017-08-04] MEDS: GABAPENTIN 100 MG CAPSULE PO SCH ×4 (03:30→21:43)
[2017-08-04] MEDS: ATORVASTATIN 10 MG TABLET PO SCH ×2 (03:30→21:43)
[2017-08-04 05:41] LABS: HEMOGLOBIN 7.4 g/dL (11.7-16.4)
[2017-08-04 06:04] LABS: HEMATOCRIT 22.1 % (34.6-47.8)
[2017-08-04] MEDS: SENNA/DOCUSATE TABLET PO SCH (09:00)
[2017-08-04] MEDS: FUROSEMIDE 20 MG TABLET PO SCH (09:00)
[2017-08-04] MEDS: DURICEF 500 MG HOMEMEDPO SCH ×2 (09:00→19:25)
[2017-08-04] MEDS: ALLOPURINOL 100 MG TABLET PO SCH (09:15)
[2017-08-04] MEDS: OXYcodone IR 5MG TABLET PO PRN ×2 (09:15→17:56)
[2017-08-04] MEDS: THIAMINE 100MG TABLET PO SCH (09:15)
[2017-08-04] MEDS: DIVALPROEX 250 MG TABLET.DR PO SCH ×2 (09:16→21:43)
[2017-08-04] MEDS: GUAIFENESIN ER 600 MG TABLET PO SCH ×2 (09:16→21:43)
[2017-08-04] MEDS: MULTIVITAMIN 1 TABLET PO SCH (09:16)
[2017-08-04] MEDS: LISINOPRIL 20 MG TABLET PO SCH (09:16)
[2017-08-04] MEDS: FOLIC ACID 1 MG TABLET PO SCH (09:16)
[2017-08-04] MEDS: CARVEDILOL 3.125 MG TABLET PO SCH ×2 (09:16→21:00)
[2017-08-04] MEDS: SODIUM CHLORIDE FLUSH 10ML SYR IVF SCH ×3 (09:18→19:58)
[2017-08-04] MEDS: ISOSORBIDE MONONITRATE ER 60 MG TABLET PO SCH (09:19)
[2017-08-04 11:51] LABS: HEMOGLOBIN 7.1 g/dL (11.7-16.4)
[2017-08-04 11:52] LABS: TOTAL IRON BINDING CAPACITY 184 mcg/dL (250-450)
[2017-08-04 12:19] LABS: FERRITIN 184.1 ng/mL (8-252); TRANSFERRIN 133 mg/dL (200-360)
[2017-08-04 13:10] LABS: HEMATOCRIT 21.8 % (34.6-47.8)
[2017-08-04] MEDS ORDERED: IRON DEXTRAN IV PER PHARMACY IV PRN (14:30)
[2017-08-04] MEDS ORDERED: IRON DEXTRAN COMPLEX 25 MG in SODIUM CHLORIDE 0.9% 50 ML IV ONE (14:30)
[2017-08-04] MEDS ORDERED: IRON DEXTRAN COMPLEX 1,800 MG in SODIUM CHLORIDE 0.9% 250 ML IV ONE (14:30)
[2017-08-04] MEDS ORDERED: EPINEPHRINE 1 MG/ML, 1ML SQ ONE (15:00)
[2017-08-04] MEDS ORDERED: SODIUM CHLORIDE 0.9%, 500ML IVBOLUS ONE (16:00)
[2017-08-04 18:45] LABS: HEMATOCRIT 21.3 % (34.6-47.8); HEMOGLOBIN 6.9 g/dL (11.7-16.4)
[2017-08-04] MEDS ORDERED: ERGOCALCIFEROL 50,000 UNIT CAPSULE PO SCH (20:00)
[2017-08-05 00:35] VITALS: BP 106/61
[2017-08-05 02:30] VITALS: BP 110/63
[2017-08-05 05:23] LABS: HEMOGLOBIN 7.8 g/dL (11.7-16.4); WHITE BLOOD COUNT 6.3 x10^3/uL (3.4-10)
[2017-08-05 05:25] LABS: BLOOD UREA NITROGEN 11 mg/dL (7-18)
[2017-08-05 05:29] LABS: ASPARTATE AMINO TRANSFERASE 11 U/L (15-37)
[2017-08-05 05:31] LABS: HEMATOCRIT 22.8 % (34.6-47.8)
[2017-08-05 08:48] VITALS: BP 137/75
[2017-08-05] MEDS: DURICEF 500 MG HOMEMEDPO SCH ×2 (09:00→20:08)
[2017-08-05] MEDS: SODIUM CHLORIDE FLUSH 10ML SYR IVF SCH ×2 (09:00→20:07)
[2017-08-05] MEDS: DIVALPROEX 250 MG TABLET.DR PO SCH ×2 (09:14→20:07)
[2017-08-05] MEDS: OXYcodone IR 5MG TABLET PO PRN ×2 (09:14→17:53)
[2017-08-05] MEDS: GABAPENTIN 100 MG CAPSULE PO SCH ×3 (09:14→20:07)
[2017-08-05] MEDS: ALLOPURINOL 100 MG TABLET PO SCH (09:15)
[2017-08-05] MEDS: FUROSEMIDE 20 MG TABLET PO SCH (09:15)
[2017-08-05] MEDS: LISINOPRIL 20 MG TABLET PO SCH (09:15)
[2017-08-05] MEDS: GUAIFENESIN ER 600 MG TABLET PO SCH ×2 (09:15→20:07)
[2017-08-05] MEDS: MULTIVITAMIN 1 TABLET PO SCH (09:15)
[2017-08-05] MEDS: ISOSORBIDE MONONITRATE ER 60 MG TABLET PO SCH (09:16)
[2017-08-05] MEDS: THIAMINE 100MG TABLET PO SCH (09:17)
[2017-08-05] MEDS: FOLIC ACID 1 MG TABLET PO SCH (09:17)
[2017-08-05] MEDS: CARVEDILOL 3.125 MG TABLET PO SCH ×2 (09:17→20:06)
[2017-08-05] MEDS: SENNA/DOCUSATE TABLET PO SCH (09:18)
[2017-08-05 14:50] VITALS: BP 110/67
[2017-08-05 18:54] VITALS: BP 117/74
[2017-08-05] MEDS: ATORVASTATIN 10 MG TABLET PO SCH (20:07)
[2017-08-06 00:31] VITALS: BP 115/70
[2017-08-06 05:05] LABS: HEMATOCRIT 23.4 % (34.6-47.8); HEMOGLOBIN 7.9 g/dL (11.7-16.4)
[2017-08-06 05:12] LABS: BLOOD UREA NITROGEN 9 mg/dL (7-18)
[2017-08-06 05:25] LABS: TOTAL IRON BINDING CAPACITY 321 mcg/dL (250-450)
[2017-08-06 06:43] VITALS: BP 132/73
[2017-08-06] MEDS: DURICEF 500 MG HOMEMEDPO SCH (08:40)
[2017-08-06] MEDS: SODIUM CHLORIDE FLUSH 10ML SYR IVF SCH (08:41)
[2017-08-06] MEDS: GABAPENTIN 100 MG CAPSULE PO SCH ×2 (08:41→16:08)
[2017-08-06] MEDS: LISINOPRIL 20 MG TABLET PO SCH (08:41)
[2017-08-06] MEDS: DIVALPROEX 250 MG TABLET.DR PO SCH (08:41)
[2017-08-06] MEDS: ALLOPURINOL 100 MG TABLET PO SCH (08:42)
[2017-08-06] MEDS: CARVEDILOL 3.125 MG TABLET PO SCH (08:42)
[2017-08-06] MEDS: SENNA/DOCUSATE TABLET PO SCH (08:42)
[2017-08-06] MEDS: MULTIVITAMIN 1 TABLET PO SCH (08:42)
[2017-08-06] MEDS: GUAIFENESIN ER 600 MG TABLET PO SCH (08:42)
[2017-08-06] MEDS: NICOTINE 21 MG/24 HR PATCH.TD24 TD SCH (08:43)
[2017-08-06] MEDS: ISOSORBIDE MONONITRATE ER 60 MG TABLET PO SCH (08:44)
[2017-08-06] MEDS: FOLIC ACID 1 MG TABLET PO SCH (08:44)
[2017-08-06] MEDS: THIAMINE 100MG TABLET PO SCH (08:44)
[2017-08-06] MEDS ORDERED: SENN1TAB7 PO (12:07)
[2017-08-06] MEDS ORDERED: NICO-487 TD (12:07)
[2017-08-06] MEDS ORDERED: ACET325T14 PO (12:07)
[2017-08-06] MEDS ORDERED: POLY17PO5 PO (12:07)
[2017-08-06] MEDS ORDERED: FERR324T8 PO (12:07)
[2017-08-06 14:03] VITALS: BP 124/81
[2017-09-02] MEDS ORDERED: ERGOCALCIFEROL 50,000 UNIT CAPSULE PO SCH (00:30)
== END 2017-08-06 16:32 | DRG 559 ==
LOC: ED 21:25 → EDIP 23:20 → 3NE 08-04 00:17
PROVIDERS: ADMIT Hospitalist; ATTEND Hospitalist
PROC: 30233N1 Transfusion of Nonautologous Red Blood Cells into Peripheral Vein, Percutaneous Approach (ICD-10-PCS; principal; 2017-08-04)
DX: T84.020A Dislocation of internal right hip prosthesis, initial encounter (principal); E43 Unspecified severe protein-calorie malnutrition; I11.0 Hypertensive heart disease with heart failure; I50.32 Chronic diastolic (congestive) heart failure; J44.9 Chronic obstructive pulmonary disease, unspecified; D64.9 Anemia, unspecified; G40.909 Epilepsy, unspecified, not intractable, without status epilepticus; E78.00 Pure hypercholesterolemia, unspecified; E78.5 Hyperlipidemia, unspecified; F17.210 Nicotine dependence, cigarettes, uncomplicated; F41.1 Generalized anxiety disorder; I71.4 Abdominal aortic aneurysm, without rupture; Z96.652 Presence of left artificial knee joint; K21.9 Gastro-esophageal reflux disease without esophagitis; M10.9 Gout, unspecified; R04.0 Epistaxis; Y79.2 Prosthetic and other implants, materials and accessory orthopedic devices associated with adverse incidents; Z86.19 Personal history of other infectious and parasitic diseases; Z68.23 Body mass index [BMI] 23.0-23.9, adult; R01.1 Cardiac murmur, unspecified
CPT/HCPCS: 27250; 36415; 80048; 80053; 82040; 82607; 82728; 82746; 83540; 83550; 84443; 84466; 85014; 85018; 85025; 85045; 85610; 85730; 86850; 86900; 86923; 96374; 96375; 99152; 99153; J1170; J1750; J2405; J7040; J7050; P9016

== ENCOUNTER 2017-08-11 07:31 | Inpatient (IN) | payer MEDICARE, OTHER ==
[~2017-08-11] VITALS: Ht 160 cm; Wt 55.7 kg
[~2017-08-11 07:31] MED LIST changes: +ACET325T14 PO; +FERR324T8 PO; +NICO-487 TD; +POLY17PO5 PO; +SENN1TAB7 PO
[2017-08-11] MEDS ORDERED: SODIUM CHLORIDE FLUSH 10ML SYR IVF ONE ×2 (08:00→12:00)
[2017-08-11 08:23] LABS: HEMATOCRIT 30.8 % (34.6-47.8); HEMOGLOBIN 10.1 g/dL (11.7-16.4); WHITE BLOOD COUNT 5.3 x10^3/uL (3.4-10)
[2017-08-11 08:27] LABS: ASPARTATE AMINO TRANSFERASE 14 U/L (15-37); BLOOD UREA NITROGEN 7 mg/dL (7-18)
[2017-08-11 08:43] LABS: IS PT STATUS REG ER OR PRE ER? YES
[2017-08-11] MEDS ORDERED: OMNIPAQUE 350 MG/ML, 100ML BOTTLE ONE (09:29)
[2017-08-11] MEDS ORDERED: ACETAMINOPHEN 325 MG TABLET PO PRN ×2 (12:00→20:30)
[2017-08-11] MEDS ORDERED: hydrALAzine 20 MG/ML, 1ML IVPush PRN ×2 (12:00→20:30)
[2017-08-11] MEDS ORDERED: LABETALOL 5MG/ML, 20ML IVPush PRN ×2 (12:00→20:30)
[2017-08-11] MEDS ORDERED: morphine SULFATE 10 MG/ML, 1ML IVPush PRN (12:00)
[2017-08-11] MEDS ORDERED: ENALAPRILAT 1.25 MG/ML, 2ML IVPush PRN ×2 (12:00→20:30)
[2017-08-11] MEDS: NICOTINE 21 MG/24 HR PATCH.TD24 TD SCH (12:00)
[2017-08-11] MEDS ORDERED: DOCUSATE 100 MG CAPSULE PO PRN ×2 (12:00→20:30)
[2017-08-11] MEDS ORDERED: ONDANSETRON 2MG/ML, 2ML IVPush PRN ×2 (12:00→20:30)
[2017-08-11] MEDS ORDERED: BISACODYL 10 MG SUPP PR PRN ×2 (12:00→20:30)
[2017-08-11] MEDS ORDERED: POLYETHYLENE GLYCOL 17 GM PACKET PO PRN ×2 (12:00→20:30)
[2017-08-11] MEDS ORDERED: LIDOCAINE 1%, 20ML ONE (15:40)
[2017-08-11] MEDS: HYDROcodone/APAP 5/325 TABLET PO PRN (15:54)
[2017-08-11 17:01] LABS: CYTOLOGY BODY FLUID RECD INTO PATHOLOGY; CYTOLOGY BODY FLUID SOURCE PLEURAL FLUID
[2017-08-11 19:47] VITALS: BP 154/92
[2017-08-11 20:00] VITALS: BP 130/79
[2017-08-11] MEDS: GUAIFENESIN ER 600 MG TABLET PO SCH (21:08)
[2017-08-11] MEDS: CARVEDILOL 3.125 MG TABLET PO SCH (21:08)
[2017-08-11] MEDS: DIVALPROEX 250 MG TABLET.DR PO SCH (21:08)
[2017-08-11] MEDS: GABAPENTIN 100 MG CAPSULE PO SCH (21:08)
[2017-08-11] MEDS: ATORVASTATIN 10 MG TABLET PO SCH (21:09)
[2017-08-12 02:50] VITALS: BP 138/84
[2017-08-12 05:57] LABS: HEMATOCRIT 27.7 % (34.6-47.8); HEMOGLOBIN 9.2 g/dL (11.7-16.4); WHITE BLOOD COUNT 6.1 x10^3/uL (3.4-10)
[2017-08-12 06:08] LABS: BLOOD UREA NITROGEN 10 mg/dL (7-18)
[2017-08-12 06:11] LABS: ASPARTATE AMINO TRANSFERASE 25 U/L (15-37)
[2017-08-12 06:37] LABS: DIFF TOTAL CELLS COUNTED 100 CELL DIFF
[2017-08-12 06:40] LABS: VERIFY COUNTS? YES
[2017-08-12 06:43] LABS: ANISOCYTOSIS 2+
[2017-08-12 06:44] LABS: OVALOCYTES 1+; SCHISTOCYTES 1+
[2017-08-12 07:49] VITALS: BP 137/84
[2017-08-12] MEDS ORDERED: ALBUTEROL/IPRATROPIUM 2.5MG/0.5MG, 3 ML NPPB PRN (08:30)
[2017-08-12] MEDS ORDERED: THIAMINE 100MG TABLET PO SCH (09:00)
[2017-08-12] MEDS ORDERED: FERROUS GLUCONATE 324 MG TABLET PO SCH (09:00)
[2017-08-12] MEDS ORDERED: SENNA/DOCUSATE TABLET PO SCH ×2 (09:00)
[2017-08-12] MEDS: ISOSORBIDE MONONITRATE ER 60 MG TABLET PO SCH (10:22)
[2017-08-12] MEDS: FERROUS GLUCONATE 324 MG TABLET PO SCH (10:23)
[2017-08-12] MEDS: THIAMINE 100MG TABLET PO SCH (10:23)
[2017-08-12] MEDS: FOLIC ACID 1 MG TABLET PO SCH (10:23)
[2017-08-12] MEDS: FUROSEMIDE 20 MG TABLET PO SCH (10:23)
[2017-08-12] MEDS: ALLOPURINOL 100 MG TABLET PO SCH (10:23)
[2017-08-12] MEDS: LISINOPRIL 20 MG TABLET PO SCH (10:23)
[2017-08-12] MEDS: DIVALPROEX 250 MG TABLET.DR PO SCH ×2 (10:23→21:45)
[2017-08-12] MEDS: GABAPENTIN 100 MG CAPSULE PO SCH ×3 (10:23→21:45)
[2017-08-12] MEDS: CARVEDILOL 3.125 MG TABLET PO SCH ×2 (10:24→21:46)
[2017-08-12] MEDS: GUAIFENESIN ER 600 MG TABLET PO SCH ×2 (10:29→21:45)
[2017-08-12] MEDS: NICOTINE 21 MG/24 HR PATCH.TD24 TD SCH (11:24)
[2017-08-12 14:00] VITALS: BP 91/51
[2017-08-12 19:26] VITALS: BP 100/53
[2017-08-12] MEDS: HYDROcodone/APAP 5/325 TABLET PO PRN (21:45)
[2017-08-12] MEDS: ATORVASTATIN 10 MG TABLET PO SCH (21:46)
[2017-08-13 02:12] VITALS: BP 115/51
[2017-08-13 05:18] LABS: BLOOD UREA NITROGEN 14 mg/dL (7-18)
[2017-08-13 05:22] LABS: HEMATOCRIT 24.4 % (34.6-47.8); HEMOGLOBIN 8.1 g/dL (11.7-16.4); WHITE BLOOD COUNT 6.6 x10^3/uL (3.4-10)
[2017-08-13 07:07] VITALS: BP 105/62
[2017-08-13 07:54] VITALS: BP 112/72
[2017-08-13] MEDS: CARVEDILOL 3.125 MG TABLET PO SCH ×2 (08:39→20:04)
[2017-08-13] MEDS: ISOSORBIDE MONONITRATE ER 60 MG TABLET PO SCH (08:40)
[2017-08-13] MEDS: LISINOPRIL 20 MG TABLET PO SCH (08:40)
[2017-08-13] MEDS: GABAPENTIN 100 MG CAPSULE PO SCH ×3 (08:51→20:04)
[2017-08-13] MEDS: GUAIFENESIN ER 600 MG TABLET PO SCH ×2 (08:51→20:04)
[2017-08-13] MEDS: FOLIC ACID 1 MG TABLET PO SCH (08:51)
[2017-08-13] MEDS: FUROSEMIDE 20 MG TABLET PO SCH (08:51)
[2017-08-13] MEDS: THIAMINE 100MG TABLET PO SCH (08:51)
[2017-08-13] MEDS: ALLOPURINOL 100 MG TABLET PO SCH (08:51)
[2017-08-13] MEDS: SENNA/DOCUSATE TABLET PO SCH (08:51)
[2017-08-13] MEDS: DIVALPROEX 250 MG TABLET.DR PO SCH ×2 (08:52→20:04)
[2017-08-13] MEDS: FERROUS GLUCONATE 324 MG TABLET PO SCH (08:52)
[2017-08-13] MEDS: NICOTINE 21 MG/24 HR PATCH.TD24 TD SCH (12:00)
[2017-08-13 14:44] VITALS: BP 117/72
[2017-08-13 19:23] VITALS: BP 113/62
[2017-08-13] MEDS: ATORVASTATIN 10 MG TABLET PO SCH (20:04)
[2017-08-13] MEDS: HYDROcodone/APAP 5/325 TABLET PO PRN (20:11)
[2017-08-14 02:43] VITALS: BP 112/68
[2017-08-14 06:11] LABS: HEMATOCRIT 30.2 % (34.6-47.8); HEMOGLOBIN 9.9 g/dL (11.7-16.4); WHITE BLOOD COUNT 6.2 x10^3/uL (3.4-10)
[2017-08-14 06:16] LABS: BLOOD UREA NITROGEN 11 mg/dL (7-18)
[2017-08-14 08:52] VITALS: BP 156/94
[2017-08-14] MEDS: SENNA/DOCUSATE TABLET PO SCH (09:00)
[2017-08-14] MEDS: FOLIC ACID 1 MG TABLET PO SCH (10:06)
[2017-08-14] MEDS: FERROUS GLUCONATE 324 MG TABLET PO SCH (10:06)
[2017-08-14] MEDS: DIVALPROEX 250 MG TABLET.DR PO SCH (10:06)
[2017-08-14] MEDS: CARVEDILOL 3.125 MG TABLET PO SCH (10:06)
[2017-08-14] MEDS: GUAIFENESIN ER 600 MG TABLET PO SCH (10:07)
[2017-08-14] MEDS: ISOSORBIDE MONONITRATE ER 60 MG TABLET PO SCH (10:07)
[2017-08-14] MEDS: FUROSEMIDE 20 MG TABLET PO SCH (10:07)
[2017-08-14] MEDS: GABAPENTIN 100 MG CAPSULE PO SCH ×2 (10:07→16:01)
[2017-08-14] MEDS: LISINOPRIL 20 MG TABLET PO SCH (10:08)
[2017-08-14] MEDS: ALLOPURINOL 100 MG TABLET PO SCH (10:09)
[2017-08-14] MEDS: THIAMINE 100MG TABLET PO SCH (10:09)
[2017-08-14] MEDS: NICOTINE 21 MG/24 HR PATCH.TD24 TD SCH (11:46)
[2017-08-14 13:31] VITALS: BP 99/61
[2017-08-17 14:07] LABS: DILUTE RUSSELL'S VIPER VENOM 31.9 sec (0.0-47.0); INTERPRETATION Note (.); PT 10.8 sec (9.6-11.5); aPTT 25.8 sec (22.9-30.2)
== END 2017-08-14 16:15 | disposition home or self-care (01) | DRG 204 ==
LOC: ED 08:20 → EDIP 10:25 → 3NE 14:34
PROVIDERS: ADMIT Family Medicine; ATTEND Family Medicine
PROC: 0W9B3ZZ Drainage of Left Pleural Cavity, Percutaneous Approach (ICD-10-PCS; principal; 2017-08-11)
DX: R04.2 Hemoptysis (principal); E43 Unspecified severe protein-calorie malnutrition; J91.0 Malignant pleural effusion; D68.32 Hemorrhagic disorder due to extrinsic circulating anticoagulants; D64.9 Anemia, unspecified; C34.90 Malignant neoplasm of unspecified part of unspecified bronchus or lung; I50.32 Chronic diastolic (congestive) heart failure; I11.0 Hypertensive heart disease with heart failure; E87.1 Hypo-osmolality and hyponatremia; J98.11 Atelectasis; G40.909 Epilepsy, unspecified, not intractable, without status epilepticus; E78.5 Hyperlipidemia, unspecified; J44.9 Chronic obstructive pulmonary disease, unspecified; I71.4 Abdominal aortic aneurysm, without rupture; Z91.09 Other allergy status, other than to drugs and biological substances; Z68.21 Body mass index [BMI] 21.0-21.9, adult; F17.210 Nicotine dependence, cigarettes, uncomplicated; F41.1 Generalized anxiety disorder; K21.9 Gastro-esophageal reflux disease without esophagitis; M10.9 Gout, unspecified; R04.0 Epistaxis; Z66 Do not resuscitate; Z96.641 Presence of right artificial hip joint; T45.515A Adverse effect of anticoagulants, initial encounter
CPT/HCPCS: 32555; 36415; 71010; 71275; 80048; 80053; 82040; 82150; 82945; 83605; 83615; 83735; 83880; 83986; 84100; 84157; 84484; 85025; 85598; 85610; 85613; 85670; 85730; 86146; 86147; 86850; 86900; 87040; 87070; 87205; 88112; 88305; 89051; 93005; 99285; J3490; Q9967; J2270

== ENCOUNTER → 2017-10-02 | Outpatient (CLI) | payer MEDICARE, OTHER | END | disposition home or self-care (01) | LOC: RAD 11:14 | PROVIDERS: ATTEND Internal Medicine | DX: J90 Pleural effusion, not elsewhere classified (principal) | CPT/HCPCS: 71020 ==

== ENCOUNTER 2018-07-11 09:55 | Inpatient (IN) | payer MEDICARE, OTHER ==
[~2018-07-11] VITALS: Ht 152.4 cm; Wt 55.7 kg
[~2018-07-11 09:55] MED LIST changes: -AMLO5TAB2 PO; +AMLO5TAB7 PO; +DIVA-59 PO; -DIVA250T6 PO; -SENN1TAB7 PO; +SENN1TAB8 PO; -THIA100T6 PO; +THIA100T67 PO
[2018-07-11] MEDS ORDERED: HYDROcodone/APAP 5/325 TABLET PO ONE ×2 (11:00→11:30)
[2018-07-11] MEDS ORDERED: HYDROcodone/APAP 5/325 TABLET ONE (11:13)
[2018-07-11] MEDS ORDERED: SODIUM CHLORIDE FLUSH 10ML SYR IVF ONE (11:30)
[2018-07-11 11:45] LABS: BASOPHILS # (AUTO) 0.05 x10^3/uL (0-0.1); BASOPHILS % (AUTO) 1 % (0-1); EOSINOPHILS # (AUTO) 0.09 x10^3/uL (0-0.4); EOSINOPHILS % (AUTO) 1 % (1-7); LYMPHOCYTES # (AUTO) 1.31 x10^3/uL (1-3.4); LYMPHOCYTES % (AUTO) 15 % (22-44); MD NO; MEAN CORPUSCULAR HEMOGLOBIN 32.9 pg (27.0-34.8); MEAN CORPUSCULAR HGB CONC 34.3 g/dL (32.4-35.8); MEAN CORPUSCULAR VOLUME 95.7 fL (80-100); MEAN PLATELET VOLUME 7.7 fL (7.4-10.4); MONOCYTES # (AUTO) 0.72 x10^3/uL (0.2-0.8); MONOCYTES % (AUTO) 8 % (2-9); NEUTROPHILS # (AUTO) 6.58 x10^3/uL (1.8-6.8); NEUTROPHILS % (AUTO) 75 % (42-75); PLATELET COUNT 225 x10^3/uL (130-400); RED BLOOD COUNT 5.01 x10^6/uL (3.82-5.3); RED CELL DISTRIBUTION WIDTH 14.6 % (9.6-15.2)
[2018-07-11 11:46] LABS: ALBUMIN 3.5 g/dL (3.4-5.0); ANION GAP 10 mmol/L (5-15); CHLORIDE 91 mmol/L (98-107)
[2018-07-11] MEDS ORDERED: ONDANSETRON 2MG/ML, 2ML IVPush PRN (12:00)
[2018-07-11] MEDS ORDERED: BISACODYL 10 MG SUPP PR PRN (12:00)
[2018-07-11] MEDS ORDERED: ENALAPRILAT 1.25 MG/ML, 2ML IVPush PRN (12:00)
[2018-07-11] MEDS ORDERED: hydrALAzine 20 MG/ML, 1ML IVPush PRN (12:00)
[2018-07-11] MEDS ORDERED: ONDANSETRON ODT 4 MG PO PRN (12:00)
[2018-07-11] MEDS ORDERED: LIDODERM 5% PATCH TD PRN (12:00)
[2018-07-11] MEDS: ACETAMINOPHEN 500 MG TABLET PO SCH ×2 (12:00→17:26)
[2018-07-11] MEDS ORDERED: KETOROLAC 30 MG/1 ML IM PRN (12:00)
[2018-07-11] MEDS ORDERED: POLYETHYLENE GLYCOL 17 GM PACKET PO PRN (12:00)
[2018-07-11] MEDS: PLEASE ENTER HEIGHT AND WEIGHT MC SCH ×2 (13:30→20:11)
[2018-07-11] MEDS: SODIUM CHLORIDE 0.9% 1,000 ML IV SCH ×2 (14:57→23:17)
[2018-07-11] MEDS: ENOXAPARIN 40 MG/0.4 ML SQ SCH (14:58)
[2018-07-11 15:40] LABS: CULTURE INDICATED? YES; MICROSCOPIC INDICATED
[2018-07-11] MEDS: GABAPENTIN 100 MG CAPSULE PO SCH ×2 (17:26→20:05)
[2018-07-11] MEDS: CARVEDILOL 3.125 MG TABLET PO SCH (20:05)
[2018-07-11] MEDS: DOCUSATE 100 MG CAPSULE PO SCH (20:05)
[2018-07-11] MEDS: DIVALPROEX 250 MG TABLET.DR PO SCH (20:05)
[2018-07-11 21:59] VITALS: BP 129/87
[2018-07-12 03:38] VITALS: BP 143/85
[2018-07-12] MEDS: PLEASE ENTER HEIGHT AND WEIGHT MC SCH (05:01)
[2018-07-12] MEDS: ACETAMINOPHEN 500 MG TABLET PO SCH ×4 (05:01→18:00)
[2018-07-12 06:39] LABS: BASOPHILS # (AUTO) 0.04 x10^3/uL (0-0.1); BASOPHILS % (AUTO) 1 % (0-1); EOSINOPHILS # (AUTO) 0.32 x10^3/uL (0-0.4); EOSINOPHILS % (AUTO) 5 % (1-7); LYMPHOCYTES # (AUTO) 1.66 x10^3/uL (1-3.4); LYMPHOCYTES % (AUTO) 25 % (22-44); MD NO; MEAN CORPUSCULAR HEMOGLOBIN 32.2 pg (27.0-34.8); MEAN CORPUSCULAR HGB CONC 33.5 g/dL (32.4-35.8); MEAN PLATELET VOLUME 7.8 fL (7.4-10.4); MONOCYTES # (AUTO) 0.53 x10^3/uL (0.2-0.8); MONOCYTES % (AUTO) 8 % (2-9); NEUTROPHILS # (AUTO) 4.09 x10^3/uL (1.8-6.8); NEUTROPHILS % (AUTO) 62 % (42-75); PLATELET COUNT 233 x10^3/uL (130-400); RED BLOOD COUNT 4.66 x10^6/uL (3.82-5.3); RED CELL DISTRIBUTION WIDTH 14.8 % (9.6-15.2)
[2018-07-12 06:48] LABS: ALANINE AMINOTRANSFERASE 12 U/L (12-78); ALBUMIN 2.9 g/dL (3.4-5.0); ANION GAP 11 mmol/L (5-15); CALCIUM 8.8 mg/dL (8.5-10.1); CHLORIDE 98 mmol/L (98-107); CREATININE 0.52 mg/dL (0.55-1.02)
[2018-07-12 06:51] LABS: ALKALINE PHOSPHATASE 82 U/L (45-117); BILIRUBIN,TOTAL 0.6 mg/dL (0.2-1.0); TOTAL PROTEIN 6.2 g/dL (6.4-8.2)
[2018-07-12 08:30] VITALS: BP 146/74
[2018-07-12] MEDS: MULTIVITAMIN 1 TABLET PO SCH (09:43)
[2018-07-12] MEDS: ISOSORBIDE MONONITRATE ER 60 MG TABLET PO SCH (09:43)
[2018-07-12] MEDS: DOCUSATE 100 MG CAPSULE PO SCH ×2 (09:44→20:27)
[2018-07-12] MEDS: SENNA/DOCUSATE TABLET PO SCH (09:44)
[2018-07-12] MEDS: ALLOPURINOL 100 MG TABLET PO SCH (09:44)
[2018-07-12] MEDS: LISINOPRIL 20 MG TABLET PO SCH (09:45)
[2018-07-12] MEDS: GABAPENTIN 100 MG CAPSULE PO SCH ×3 (09:45→20:27)
[2018-07-12] MEDS: DIVALPROEX 250 MG TABLET.DR PO SCH ×2 (09:45→20:27)
[2018-07-12] MEDS: CARVEDILOL 3.125 MG TABLET PO SCH ×2 (09:45→20:27)
[2018-07-12] MEDS: ENOXAPARIN 40 MG/0.4 ML SQ SCH (11:48)
[2018-07-12] MEDS ORDERED: SODIUM CHLORIDE 0.9% 1,000 ML IV SCH (11:58)
[2018-07-12] MEDS ORDERED: ERGOCALCIFEROL 50,000 UNIT CAPSULE PO SCH (12:30)
[2018-07-12 14:30] VITALS: BP 110/70
[2018-07-12] MEDS: CEFTRIAXONE 1,000 MG in SODIUM CHLORIDE 0.9% 50 ML IV SCH (14:50)
[2018-07-12] MEDS: OXYcodone IR 5MG TABLET PO PRN ×2 (14:50→19:07)
[2018-07-12 18:39] VITALS: BP 125/83
[2018-07-13 03:20] VITALS: BP 127/82
[2018-07-13] MEDS: ACETAMINOPHEN 500 MG TABLET PO SCH ×4 (06:00→16:40)
[2018-07-13 07:56] VITALS: BP 145/93
[2018-07-13] MEDS: ALLOPURINOL 100 MG TABLET PO SCH (10:27)
[2018-07-13] MEDS: ENOXAPARIN 40 MG/0.4 ML SQ SCH (10:27)
[2018-07-13] MEDS: DIVALPROEX 250 MG TABLET.DR PO SCH ×2 (10:27→19:47)
[2018-07-13] MEDS: SENNA/DOCUSATE TABLET PO SCH (10:27)
[2018-07-13] MEDS: GABAPENTIN 100 MG CAPSULE PO SCH ×3 (10:27→19:47)
[2018-07-13] MEDS: DOCUSATE 100 MG CAPSULE PO SCH ×2 (10:27→19:47)
[2018-07-13] MEDS: CALCIUM CARBONATE 500 MG TABLET PO SCH (10:27)
[2018-07-13] MEDS: LISINOPRIL 20 MG TABLET PO SCH (10:28)
[2018-07-13] MEDS: CARVEDILOL 3.125 MG TABLET PO SCH ×2 (10:28→19:47)
[2018-07-13] MEDS: ISOSORBIDE MONONITRATE ER 60 MG TABLET PO SCH (10:28)
[2018-07-13] MEDS: MULTIVITAMIN 1 TABLET PO SCH (10:28)
[2018-07-13 14:23] VITALS: BP 129/71
[2018-07-13] MEDS: CEFTRIAXONE 1,000 MG in SODIUM CHLORIDE 0.9% 50 ML IV SCH (15:34)
[2018-07-14 00:52] VITALS: BP 146/84
[2018-07-14] MEDS: ACETAMINOPHEN 500 MG TABLET PO SCH ×2 (06:00)
[2018-07-14 06:56] VITALS: BP 154/93
[2018-07-14] MEDS ORDERED: ALENDRONATE 10 MG TABLET PO SCH (08:30)
[2018-07-14] MEDS ORDERED: CARVEDILOL 6.25 MG TABLET PO SCH (09:00)
[2018-07-14] MEDS: SENNA/DOCUSATE TABLET PO SCH (09:36)
[2018-07-14] MEDS: ALLOPURINOL 100 MG TABLET PO SCH (09:36)
[2018-07-14] MEDS: DIVALPROEX 250 MG TABLET.DR PO SCH (09:37)
[2018-07-14] MEDS: CALCIUM CARBONATE 500 MG TABLET PO SCH (09:37)
[2018-07-14] MEDS: GABAPENTIN 100 MG CAPSULE PO SCH (09:37)
[2018-07-14] MEDS: LISINOPRIL 20 MG TABLET PO SCH (09:38)
[2018-07-14] MEDS: MULTIVITAMIN 1 TABLET PO SCH (09:38)
[2018-07-14] MEDS: DOCUSATE 100 MG CAPSULE PO SCH (09:38)
[2018-07-14] MEDS: ISOSORBIDE MONONITRATE ER 60 MG TABLET PO SCH (09:38)
[2018-07-14] MEDS ORDERED: ENOXAPARIN 30 MG/0.3 ML SQ SCH (12:00)
[2018-07-14] MEDS ORDERED: CALC-666 PO (12:45)
[2018-07-14] MEDS ORDERED: CARV3.122 PO (12:45)
[2018-07-14] MEDS ORDERED: ALEN10TA6 PO (12:45)
[2018-07-14] MEDS ORDERED: FERR324T8 PO (12:45)
[2018-07-14 12:56] VITALS: BP 150/93
== END 2018-07-14 14:27 | disposition home health service (06) | DRG 543 ==
LOC: ED 11:10 → EDIP 11:11 → INTOOBSV 11:11 → UNDOADMOB 11:11 → ED 11:20 → EDIP 11:58 → OBSVTOIN 11:58 → EDIP 13:15 → 3NE 13:15
PROVIDERS: ADMIT Internal Medicine; ATTEND Hospitalist
DX: M80.08XA Age-related osteoporosis with current pathological fracture, vertebra(e), initial encounter for fracture (principal); E87.1 Hypo-osmolality and hyponatremia; N39.0 Urinary tract infection, site not specified; I50.32 Chronic diastolic (congestive) heart failure; E46 Unspecified protein-calorie malnutrition; Z88.8 Allergy status to other drugs, medicaments and biological substances; E86.0 Dehydration; F17.210 Nicotine dependence, cigarettes, uncomplicated; G40.909 Epilepsy, unspecified, not intractable, without status epilepticus; I11.0 Hypertensive heart disease with heart failure; I71.4 Abdominal aortic aneurysm, without rupture; J44.9 Chronic obstructive pulmonary disease, unspecified; K21.9 Gastro-esophageal reflux disease without esophagitis; M85.80 Other specified disorders of bone density and structure, unspecified site; W18.39XA Other fall on same level, initial encounter; Z96.641 Presence of right artificial hip joint; Z96.652 Presence of left artificial knee joint; S32.9XXD Fracture of unspecified parts of lumbosacral spine and pelvis, subsequent encounter for fracture with routine healing; Y93.89 Activity, other specified; Y92.89 Other specified places as the place of occurrence of the external cause; Y99.8 Other external cause status; Z90.710 Acquired absence of both cervix and uterus; Z68.24 Body mass index [BMI] 24.0-24.9, adult
CPT/HCPCS: 36415; 72192; 80048; 80053; 81001; 82040; 82306; 85025; 87077; 87086; 87186; G0378; J0696; J1650; J7030

== ENCOUNTER 2018-08-06 10:01 | Inpatient (IN) | payer MEDICARE, OTHER ==
[~2018-08-06] VITALS: Ht 162.6 cm; Wt 54.9 kg
[~2018-08-06 10:01] MED LIST changes: +ALEN10TA6 PO; +CALC-666 PO
[2018-08-06 10:44] LABS: BASOPHILS # (AUTO) 0.02 x10^3/uL (0-0.1); BASOPHILS % (AUTO) 0 % (0-1); EOSINOPHILS # (AUTO) 0.18 x10^3/uL (0-0.4); EOSINOPHILS % (AUTO) 2 % (1-7); LYMPHOCYTES # (AUTO) 1.37 x10^3/uL (1-3.4); LYMPHOCYTES % (AUTO) 17 % (22-44); MD NO; MEAN CORPUSCULAR HEMOGLOBIN 31.8 pg (27.0-34.8); MEAN CORPUSCULAR HGB CONC 33.6 g/dL (32.4-35.8); MEAN CORPUSCULAR VOLUME 94.7 fL (80-100); MEAN PLATELET VOLUME 8.1 fL (7.4-10.4); MONOCYTES # (AUTO) 0.61 x10^3/uL (0.2-0.8); MONOCYTES % (AUTO) 8 % (2-9); NEUTROPHILS % (AUTO) 73 % (42-75); PLATELET COUNT 176 x10^3/uL (130-400); RED BLOOD COUNT 4.53 x10^6/uL (3.82-5.3)
[2018-08-06 10:52] LABS: ALANINE AMINOTRANSFERASE 12 U/L (12-78); ALBUMIN 3.3 g/dL (3.4-5.0); ANION GAP 7 mmol/L (5-15); CALCIUM 9.5 mg/dL (8.5-10.1); CHLORIDE 90 mmol/L (98-107); CREATININE 0.69 mg/dL (0.55-1.02)
[2018-08-06 10:55] LABS: ALKALINE PHOSPHATASE 111 U/L (45-117); BILIRUBIN,TOTAL 0.9 mg/dL (0.2-1.0); TOTAL PROTEIN 6.6 g/dL (6.4-8.2)
[2018-08-06 11:40] LABS: MICROSCOPIC NOT IND
[2018-08-06 11:43] LABS: CULTURE INDICATED? NO
[2018-08-06 11:57] LABS: AMPHETAMINE SCREEN, URINE Negative (Negative); BARBITURATE SCREEN, URINE Negative (Negative); BENZODIAZEPINE SCREEN, URINE Negative (Negative); CANNABINOID SCREEN, URINE Negative (Negative); COCAINE SCREEN, URINE Negative (Negative); METHADONE SCREEN, URINE Negative (Negative); OPIATE SCREEN, URINE Negative (Negative)
[2018-08-06] MEDS ORDERED: LABETALOL 5MG/ML, 20ML IVPush PRN (14:00)
[2018-08-06] MEDS ORDERED: hydrALAzine 20 MG/ML, 1ML IVPush PRN (14:00)
[2018-08-06] MEDS ORDERED: ONDANSETRON 2MG/ML, 2ML IVPush PRN (14:00)
[2018-08-06] MEDS ORDERED: DOCUSATE 100 MG CAPSULE PO PRN (14:00)
[2018-08-06] MEDS ORDERED: ONDANSETRON ODT 4 MG PO PRN (14:00)
[2018-08-06] MEDS ORDERED: ACETAMINOPHEN 325 MG TABLET PO PRN (14:00)
[2018-08-06] MEDS ORDERED: SODIUM CHLORIDE 0.9% 1,000 ML IV ONE (14:00)
[2018-08-06 14:12] VITALS: BP 138/80
[2018-08-06] MEDS ORDERED: POLYETHYLENE GLYCOL 17 GM PACKET PO PRN (14:30)
[2018-08-06] MEDS ORDERED: PLEASE ENTER WEIGHT MC SCH (14:30)
[2018-08-06] MEDS: NICOTINE 21 MG/24 HR PATCH.TD24 TD SCH (16:16)
[2018-08-06] MEDS: HEPARIN 5,000 UNITS/ML, 1ML SQ SCH ×2 (16:16→23:17)
[2018-08-06] MEDS: GABAPENTIN 100 MG CAPSULE PO SCH ×2 (16:17→21:40)
[2018-08-06] MEDS ORDERED: ALBUTEROL/IPRATROPIUM 2.5MG/0.5MG, 3 ML NPPB PRN (17:00)
[2018-08-06 20:10] VITALS: BP 133/85
[2018-08-06] MEDS: DIVALPROEX 250 MG TABLET.DR PO SCH (21:40)
[2018-08-06] MEDS: CARVEDILOL 6.25 MG TABLET PO SCH (21:40)
[2018-08-06] MEDS ORDERED: DIPHENHYDRAMINE 25 MG CAPSULE PO ONE (23:30)
[2018-08-07 01:38] VITALS: BP 133/87
[2018-08-07 05:11] LABS: CHLORIDE 97 mmol/L (98-107)
[2018-08-07 05:29] LABS: ANION GAP 8 mmol/L (5-15); CALCIUM 9.1 mg/dL (8.5-10.1); CREATININE 0.48 mg/dL (0.55-1.02)
[2018-08-07] MEDS ORDERED: ALENDRONATE 10 MG TABLET PO SCH (06:30)
[2018-08-07 06:45] VITALS: BP 125/84
[2018-08-07] MEDS: DIVALPROEX 250 MG TABLET.DR PO SCH (08:38)
[2018-08-07] MEDS: CARVEDILOL 6.25 MG TABLET PO SCH (08:38)
[2018-08-07] MEDS: GABAPENTIN 100 MG CAPSULE PO SCH ×2 (08:38→17:31)
[2018-08-07] MEDS: HEPARIN 5,000 UNITS/ML, 1ML SQ SCH ×2 (08:38→17:32)
[2018-08-07] MEDS ORDERED: ISOSORBIDE MONONITRATE ER 60 MG TABLET PO SCH (09:00)
[2018-08-07] MEDS ORDERED: LISINOPRIL 20 MG TABLET PO SCH (09:00)
[2018-08-07] MEDS ORDERED: CALCIUM CARBONATE 500 MG TABLET PO SCH (09:00)
[2018-08-07] MEDS ORDERED: SENNA/DOCUSATE TABLET PO SCH (09:00)
[2018-08-07] MEDS ORDERED: ALLOPURINOL 100 MG TABLET PO SCH (09:00)
[2018-08-07] MEDS ORDERED: MULTIVITAMIN 1 TABLET PO SCH (09:00)
[2018-08-07 10:10] LABS: FREE T4 (FREE THYROXINE) 1.39 ng/dL (0.76-1.46)
[2018-08-07 14:01] VITALS: BP 98/64
[2018-08-07] MEDS: NICOTINE 21 MG/24 HR PATCH.TD24 TD SCH (14:30)
[2018-08-07] MEDS ORDERED: ACET325T14 PO (15:02)
[2018-08-07] MEDS ORDERED: TRAM50TA2 PO (15:02)
[2018-08-07] MEDS ORDERED: CHOL500015 PO (15:02)
[2018-08-08] MEDS ORDERED: CHOLECALCIFEROL 5,000u TAB PO SCH (09:00)
== END 2018-08-07 18:20 | DRG 551 ==
LOC: ED 10:44 → EDIP 12:30 → 3NE 13:53
PROVIDERS: ADMIT Family Medicine; ATTEND Family Medicine
DX: S32.10XA Unspecified fracture of sacrum, initial encounter for closed fracture (principal); E43 Unspecified severe protein-calorie malnutrition; S32.512A Fracture of superior rim of left pubis, initial encounter for closed fracture; E87.1 Hypo-osmolality and hyponatremia; I50.32 Chronic diastolic (congestive) heart failure; W18.30XA Fall on same level, unspecified, initial encounter; R29.6 Repeated falls; Z68.20 Body mass index [BMI] 20.0-20.9, adult; E78.5 Hyperlipidemia, unspecified; G40.909 Epilepsy, unspecified, not intractable, without status epilepticus; I11.0 Hypertensive heart disease with heart failure; I71.4 Abdominal aortic aneurysm, without rupture; J44.9 Chronic obstructive pulmonary disease, unspecified; K21.9 Gastro-esophageal reflux disease without esophagitis; M48.02 Spinal stenosis, cervical region; M50.30 Other cervical disc degeneration, unspecified cervical region; M81.0 Age-related osteoporosis without current pathological fracture; Z72.0 Tobacco use; M10.9 Gout, unspecified; S39.012A Strain of muscle, fascia and tendon of lower back, initial encounter; Y93.89 Activity, other specified; Y92.89 Other specified places as the place of occurrence of the external cause; Y99.2 Volunteer activity; M43.5X2 Other recurrent vertebral dislocation, cervical region; M85.80 Other specified disorders of bone density and structure, unspecified site
CPT/HCPCS: 36415; 70450; 72110; 72125; 72220; 80048; 80053; 80307; 81003; 84439; 84443; 84481; 85025; 93005; 99285; G0378; J1644; J7030; Q0163

== ENCOUNTER 2019-02-20 14:19 | Inpatient (IN) | payer MEDICARE, OTHER ==
[~2019-02-20] VITALS: Ht 160 cm; Wt 53.6 kg
[~2019-02-20 14:19] MED LIST changes: +AMLO-150 PO; -AMLO5TAB7 PO; +CHOL500015 PO; +SENN-177 PO; -SENN1TAB8 PO; +TRAM50TA2 PO
--- NOTE | 2019-02-20 14:47 | NUR ---
PT TO XRAY AT THIS TIME.
--- NOTE | 2019-02-20 14:49 | NUR ---
VS UPDATED AND WNL. PT RESTING WITH NO COMPLAINTS. NOTIFIED. DR. SARMIENTO THAT PATIENT HAS ATTEMPTED TO PROVIDE STOOL SAMPLE BUT IS UNABLE. DR. SARMIENTO TO ORDER CT SCAN. PT NOTIFIED.
[2019-02-20 14:51] LABS: BASOPHILS # (AUTO) 0.06 x10^3/uL (0-0.1); BASOPHILS % (AUTO) 1 % (0-1); EOSINOPHILS # (AUTO) 0.29 x10^3/uL (0-0.4); EOSINOPHILS % (AUTO) 4 % (1-7); LYMPHOCYTES # (AUTO) 1.92 x10^3/uL (1-3.4); LYMPHOCYTES % (AUTO) 25 % (22-44); MD NO; MEAN CORPUSCULAR HEMOGLOBIN 32.1 pg (27.0-34.8); MEAN CORPUSCULAR HGB CONC 33.1 g/dL (32.4-35.8); MONOCYTES # (AUTO) 0.56 x10^3/uL (0.2-0.8); MONOCYTES % (AUTO) 7 % (2-9); NEUTROPHILS # (AUTO) 4.85 x10^3/uL (1.8-6.8); NEUTROPHILS % (AUTO) 63 % (42-75); PLATELET COUNT 165 x10^3/uL (130-400); RED BLOOD COUNT 4.74 x10^6/uL (3.82-5.3); RED CELL DISTRIBUTION WIDTH 15.1 % (9.6-15.2)
[2019-02-20] MEDS ORDERED: MORPHINE SULFATE 4 MG/ML, 1ML ONE ×2 (14:58→16:38)
[2019-02-20 15:00] LABS: ALBUMIN 3.2 g/dL (3.4-5.0); ANION GAP 9 mmol/L (5-15); CALCIUM 9.1 mg/dL (8.5-10.1); CHLORIDE 96 mmol/L (98-107)
[2019-02-20 15:04] LABS: ALANINE AMINOTRANSFERASE 15 U/L (12-78); ALKALINE PHOSPHATASE 69 U/L (45-117); BILIRUBIN,TOTAL 0.8 mg/dL (0.2-1.0); CREATININE 0.64 mg/dL (0.55-1.02); TOTAL PROTEIN 6.5 g/dL (6.4-8.2)
[2019-02-20] MEDS: MORPHINE SULFATE 4 MG/ML, 1ML IVPush PRN ×2 (15:09→16:40)
--- NOTE | 2019-02-20 15:45 | NUR ---
This RN at bedside for straight cath, pt tolerated procedure well. Urine sample walked to lab.
[2019-02-20 16:08] LABS: MICROSCOPIC NOT IND
[2019-02-20 16:17] LABS: CULTURE INDICATED? NO
--- NOTE | 2019-02-20 16:41 | NUR ---
PT MEDICATED WITH SECOND DOSE OF MORPHINE FOR PAIN 05/07.
[2019-02-20] MEDS ORDERED: POLYETHYLENE GLYCOL 17 GM PACKET PO PRN (17:30)
[2019-02-20] MEDS ORDERED: ACETAMINOPHEN 325 MG TABLET PO PRN (17:30)
[2019-02-20] MEDS: SODIUM CHLORIDE 0.9% 1,000 ML IV SCH (17:33)
[2019-02-20] MEDS ORDERED: hydrALAzine 20 MG/ML, 1ML IVPush PRN (18:00)
[2019-02-20] MEDS ORDERED: ONDANSETRON 2MG/ML, 2ML IVPush PRN (18:00)
[2019-02-20] MEDS: morphine SULFATE 10 MG/ML, 1ML IVPush PRN ×2 (18:40→22:35)
[2019-02-20 18:41] VITALS: BP 134/91
[2019-02-20] MEDS: NICOTINE 7 MG/24 HR PATCH.TD24 TD SCH (18:41)
[2019-02-20 20:00] VITALS: BP 131/77
[2019-02-20] MEDS: GABAPENTIN 100 MG CAPSULE PO SCH (20:16)
[2019-02-20] MEDS: DIVALPROEX 250 MG TABLET.DR PO SCH (20:16)
[2019-02-20] MEDS: CARVEDILOL 6.25 MG TABLET PO SCH (20:16)
[2019-02-21 01:01] VITALS: BP 113/76
[2019-02-21] MEDS: morphine SULFATE 10 MG/ML, 1ML IVPush PRN ×3 (02:28→17:49)
[2019-02-21 06:28] LABS: CHLORIDE 98 mmol/L (98-107)
[2019-02-21 06:32] LABS: ANION GAP 9 mmol/L (5-15); CALCIUM 9.3 mg/dL (8.5-10.1)
[2019-02-21] MEDS: ALENDRONATE 10 MG TABLET PO SCH (06:33)
[2019-02-21] MEDS: SODIUM CHLORIDE 0.9% 1,000 ML IV SCH (06:33)
[2019-02-21 06:45] LABS: BASOPHILS # (AUTO) 0.02 x10^3/uL (0-0.1); BASOPHILS % (AUTO) 0 % (0-1); EOSINOPHILS # (AUTO) 0.09 x10^3/uL (0-0.4); EOSINOPHILS % (AUTO) 1 % (1-7); LYMPHOCYTES # (AUTO) 1.29 x10^3/uL (1-3.4); LYMPHOCYTES % (AUTO) 17 % (22-44); MD NO; MEAN CORPUSCULAR HEMOGLOBIN 32.5 pg (27.0-34.8); MEAN CORPUSCULAR HGB CONC 33.3 g/dL (32.4-35.8); MEAN CORPUSCULAR VOLUME 97.5 fL (80-100); MEAN PLATELET VOLUME 8.8 fL (7.4-10.4); MONOCYTES # (AUTO) 0.65 x10^3/uL (0.2-0.8); MONOCYTES % (AUTO) 9 % (2-9); NEUTROPHILS # (AUTO) 5.53 x10^3/uL (1.8-6.8); NEUTROPHILS % (AUTO) 73 % (42-75); PLATELET COUNT 124 x10^3/uL (130-400); RED BLOOD COUNT 4.34 x10^6/uL (3.82-5.3); RED CELL DISTRIBUTION WIDTH 15.1 % (9.6-15.2)
[2019-02-21 07:39] VITALS: BP 126/82
[2019-02-21] MEDS: DIVALPROEX 250 MG TABLET.DR PO SCH ×2 (08:23→19:57)
[2019-02-21] MEDS: GABAPENTIN 100 MG CAPSULE PO SCH ×3 (08:23→19:57)
[2019-02-21] MEDS: CARVEDILOL 6.25 MG TABLET PO SCH ×2 (08:23→19:57)
[2019-02-21] MEDS: CHOLECALCIFEROL 5,000u TAB PO SCH (08:23)
[2019-02-21] MEDS: CALCIUM CARBONATE 500 MG TABLET PO SCH (08:23)
[2019-02-21] MEDS: ALLOPURINOL 100 MG TABLET PO SCH (08:23)
[2019-02-21] MEDS: SENNA/DOCUSATE TABLET PO SCH (08:23)
[2019-02-21] MEDS: LISINOPRIL 40 MG TABLET PO SCH (09:00)
[2019-02-21 11:32] VITALS: BP 107/72
[2019-02-21 12:05] LABS: HEMOGLOBIN A1C 5.5 % (4.2-6.3)
[2019-02-21 13:54] VITALS: BP 128/84
[2019-02-21] MEDS: NICOTINE 7 MG/24 HR PATCH.TD24 TD SCH (17:44)
[2019-02-21 19:26] VITALS: BP 143/96
[2019-02-22 01:19] VITALS: BP 136/91
[2019-02-22 05:26] LABS: CHLORIDE 104 mmol/L (98-107)
[2019-02-22 05:32] LABS: ANION GAP 7 mmol/L (5-15); CALCIUM 9.3 mg/dL (8.5-10.1); CREATININE 0.54 mg/dL (0.55-1.02)
[2019-02-22] MEDS: ALENDRONATE 10 MG TABLET PO SCH (06:14)
[2019-02-22 07:23] VITALS: BP 116/76
[2019-02-22] MEDS: SENNA/DOCUSATE TABLET PO SCH (07:43)
[2019-02-22] MEDS: CALCIUM CARBONATE 500 MG TABLET PO SCH (07:43)
[2019-02-22] MEDS: CARVEDILOL 6.25 MG TABLET PO SCH ×2 (07:43→20:50)
[2019-02-22] MEDS: LISINOPRIL 40 MG TABLET PO SCH (07:43)
[2019-02-22] MEDS: DIVALPROEX 250 MG TABLET.DR PO SCH ×2 (07:44→20:49)
[2019-02-22] MEDS: GABAPENTIN 100 MG CAPSULE PO SCH ×3 (07:44→20:49)
[2019-02-22] MEDS: ALLOPURINOL 100 MG TABLET PO SCH (07:44)
[2019-02-22] MEDS: morphine SULFATE 10 MG/ML, 1ML IVPush PRN (07:44)
[2019-02-22] MEDS: CHOLECALCIFEROL 5,000u TAB PO SCH (07:44)
[2019-02-22 13:21] VITALS: BP 111/77
[2019-02-22] MEDS: HYDROcodone/APAP 5/325 TABLET PO PRN (16:33)
[2019-02-22] MEDS: NICOTINE 7 MG/24 HR PATCH.TD24 TD SCH (16:33)
[2019-02-22 18:59] VITALS: BP 110/73
[2019-02-23 01:22] VITALS: BP 110/75
[2019-02-23 07:31] VITALS: BP 136/87
[2019-02-23] MEDS: SENNA/DOCUSATE TABLET PO SCH (09:00)
[2019-02-23] MEDS: CALCIUM CARBONATE 500 MG TABLET PO SCH (10:06)
[2019-02-23] MEDS: LISINOPRIL 40 MG TABLET PO SCH (10:06)
[2019-02-23] MEDS: GABAPENTIN 100 MG CAPSULE PO SCH ×3 (10:07→20:34)
[2019-02-23] MEDS: CHOLECALCIFEROL 5,000u TAB PO SCH (10:07)
[2019-02-23] MEDS: DIVALPROEX 250 MG TABLET.DR PO SCH ×2 (10:07→20:33)
[2019-02-23] MEDS: ALLOPURINOL 100 MG TABLET PO SCH (10:07)
[2019-02-23] MEDS: ALENDRONATE 10 MG TABLET PO SCH (10:07)
[2019-02-23] MEDS: CARVEDILOL 6.25 MG TABLET PO SCH ×2 (10:07→20:34)
[2019-02-23 13:22] VITALS: BP 113/75
[2019-02-23] MEDS: NICOTINE 7 MG/24 HR PATCH.TD24 TD SCH (17:22)
[2019-02-23 19:05] VITALS: BP 105/54
[2019-02-23 20:36] VITALS: BP 127/88
[2019-02-24 01:16] VITALS: BP 106/67
[2019-02-24] MEDS: ALENDRONATE 10 MG TABLET PO SCH (06:13)
[2019-02-24 06:56] VITALS: BP 129/84
[2019-02-24] MEDS: LISINOPRIL 40 MG TABLET PO SCH (09:22)
[2019-02-24] MEDS: ALLOPURINOL 100 MG TABLET PO SCH (09:22)
[2019-02-24] MEDS: CARVEDILOL 6.25 MG TABLET PO SCH (09:22)
[2019-02-24] MEDS: SENNA/DOCUSATE TABLET PO SCH (09:22)
[2019-02-24] MEDS: CHOLECALCIFEROL 5,000u TAB PO SCH (09:22)
[2019-02-24] MEDS: CALCIUM CARBONATE 500 MG TABLET PO SCH (09:22)
[2019-02-24] MEDS: DIVALPROEX 250 MG TABLET.DR PO SCH (09:22)
[2019-02-24] MEDS: GABAPENTIN 100 MG CAPSULE PO SCH ×2 (09:23→16:00)
[2019-02-24 13:04] VITALS: BP 104/72
[2019-02-24] MEDS: HYDROcodone/APAP 5/325 TABLET PO PRN (13:23)
[2019-02-24] MEDS ORDERED: TRAM50TA2 PO (16:14)
== END 2019-02-24 18:07 | DRG 542 ==
LOC: ED 16:35 → EDIP 16:36 → ED 16:39 → 3NE 18:25
PROVIDERS: ADMIT Internal Medicine; ATTEND Internal Medicine
PROC: 2W3BX1Z Immobilization of Left Upper Arm using Splint (ICD-10-PCS; principal; 2019-02-20)
DX: M80.022A Age-related osteoporosis with current pathological fracture, left humerus, initial encounter for fracture (principal); E43 Unspecified severe protein-calorie malnutrition; S32.10XA Unspecified fracture of sacrum, initial encounter for closed fracture; E87.1 Hypo-osmolality and hyponatremia; I50.32 Chronic diastolic (congestive) heart failure; D69.6 Thrombocytopenia, unspecified; Z91.048 Other nonmedicinal substance allergy status; Z68.20 Body mass index [BMI] 20.0-20.9, adult; E78.5 Hyperlipidemia, unspecified; E86.0 Dehydration; F17.210 Nicotine dependence, cigarettes, uncomplicated; G40.909 Epilepsy, unspecified, not intractable, without status epilepticus; I11.0 Hypertensive heart disease with heart failure; I25.10 Atherosclerotic heart disease of native coronary artery without angina pectoris; J44.9 Chronic obstructive pulmonary disease, unspecified; K21.9 Gastro-esophageal reflux disease without esophagitis; M50.30 Other cervical disc degeneration, unspecified cervical region; W01.0XXA Fall on same level from slipping, tripping and stumbling without subsequent striking against object, initial encounter; Y93.89 Activity, other specified; Y92.009 Unspecified place in unspecified non-institutional (private) residence as the place of occurrence of the external cause; Y99.8 Other external cause status; Z66 Do not resuscitate; Z82.49 Family history of ischemic heart disease and other diseases of the circulatory system; Z90.710 Acquired absence of both cervix and uterus; Z96.641 Presence of right artificial hip joint; Z96.652 Presence of left artificial knee joint
CPT/HCPCS: 29105; 36415; 80048; 80053; 81003; 83036; 85025; 96374; 96376; G0378; J2405; J2270; J7030

== ENCOUNTER 2019-12-10 14:28 | Inpatient (IN) | payer MEDICARE, OTHER ==
[~2019-12-10] VITALS: Ht 157.5 cm; Wt 57.0 kg
[~2019-12-10 14:28] MED LIST changes: +ALEN10TA10 PO; -ALEN10TA6 PO
--- NOTE | 2019-12-10 14:28 | NUR ---
BIBA FROM HOME C/O LLE PAIN AFTER GLF TODAY ("I TURNED TOO FAST FOR MY LEGS"), +DEFORMITY, +PED PULSE WITH CAP REFILL <3 SECS, SMALL BRUISING/INDURATION TO LT FOREARM ALSO NOTED, DENIES LOC OR HEAD/NECK INJURY; PIV, 100MCG FENTANYL, 2MG VERSED, 4MG ZOFRAN; PT AAOX4, RESPONDS APPROP TO STAFF, NAD AT REST BUT C/O PAIN WITH PALPATION OR MOVEMENT; COMFORT MEASURES PROVIDED, NO VISITORS AT BS.
[2019-12-10] MEDS ORDERED: SODIUM CHLORIDE 0.9% 1,000 ML IV ONE (14:34)
[2019-12-10] MEDS ORDERED: SODIUM CHLORIDE FLUSH 10ML SYR IVF ONE (15:00)
--- NOTE | 2019-12-10 15:03 | NUR ---
PT CHANGED INTO GOWN, LLE CIRCUMFERENCE 43.5CM AT CENTER OF SWELLING, LABS DRAWN, PT TO XR.
[2019-12-10 15:06] LABS: ALANINE AMINOTRANSFERASE 8 U/L (12-78); ALBUMIN 3.1 g/dL (3.4-5.0); ANION GAP 8 mmol/L (5-15); BASOPHILS # (AUTO) 0.01 x10^3/uL (0-0.1); BASOPHILS % (AUTO) 0 % (0-1); CALCIUM 9.2 mg/dL (8.5-10.1); CHLORIDE 97 mmol/L (98-107); CREATININE 0.83 mg/dL (0.55-1.02); EOSINOPHILS # (AUTO) 0.31 x10^3/uL (0-0.4); EOSINOPHILS % (AUTO) 5 % (1-7); LYMPHOCYTES # (AUTO) 1.86 x10^3/uL (1-3.4); LYMPHOCYTES % (AUTO) 28 % (22-44); MD NO; MEAN CORPUSCULAR HEMOGLOBIN 33.3 pg (27.0-34.8); MEAN CORPUSCULAR HGB CONC 33.4 g/dL (32.4-35.8); MEAN CORPUSCULAR VOLUME 99.8 fL (80-100); MEAN PLATELET VOLUME 8.1 fL (7.4-10.4); MONOCYTES # (AUTO) 0.54 x10^3/uL (0.2-0.8); MONOCYTES % (AUTO) 8 % (2-9); NEUTROPHILS # (AUTO) 3.87 x10^3/uL (1.8-6.8); NEUTROPHILS % (AUTO) 59 % (42-75); PLATELET COUNT 141 x10^3/uL (130-400); RED BLOOD COUNT 4.73 x10^6/uL (3.82-5.3); RED CELL DISTRIBUTION WIDTH 14.4 % (9.6-15.2)
[2019-12-10 15:08] LABS: ALKALINE PHOSPHATASE 61 U/L (45-117); BILIRUBIN,TOTAL 0.5 mg/dL (0.2-1.0); TOTAL PROTEIN 6.5 g/dL (6.4-8.2)
[2019-12-10 15:26] LABS: INTERNATIONAL NORMALIZED RATIO 1.09 (0.93-1.1); PROTHROMBIN TIME 11.6 Seconds (9.6-11.5)
[2019-12-10] MEDS ORDERED: MORPHINE SULFATE 4 MG/ML, 1ML ONE ×2 (15:39→18:31)
[2019-12-10] MEDS: MORPHINE SULFATE 4 MG/ML, 1ML IVPush PRN ×2 (15:41→16:03)
--- NOTE | 2019-12-10 15:42 | NUR ---
PT RETURNED FROM XR C/O INCR LLE PAIN, DR REDDY NOTIFIED, PT MEDICATED PER EMAR.
--- NOTE | 2019-12-10 15:47 | NUR ---
PUREWICK PLACED FOR COMFORT.
[2019-12-10] MEDS ORDERED: hydrALAzine 20 MG/ML, 1ML ONE (15:59)
[2019-12-10] MEDS ORDERED: hydrALAzine 20 MG/ML, 1ML IV ONE (16:00)
[2019-12-10] MEDS ORDERED: ONDANSETRON 2MG/ML, 2ML IVPush ONE (16:00)
[2019-12-10] MEDS ORDERED: ISOS60TA36 PO (16:10)
[2019-12-10] MEDS ORDERED: ONDANSETRON 2MG/ML, 2ML ONE (16:12)
--- NOTE | 2019-12-10 16:17 | NUR ---
PT BP REMAINED ELEVATED DESPITE 1ST MORPHINE DOSE WITH C/O DECR PAIN BUT STILL UNCOMFORTABLE INCL NAUSEA, DR REDDY AWARE; PT REMEDICATED FOR PAIN, NAUSEA & HTN PER EMAR.
--- NOTE | 2019-12-10 16:24 | NUR ---
DR REDDY SPOKE WITH DR CLAYTON
--- NOTE | 2019-12-10 16:38 | NUR ---
PT DAUGHTER CALLED TO NOTIFY OF PT STATUS PER PT REQUEST.
--- NOTE | 2019-12-10 16:59 | NUR ---
REPORT GIVEN TO AUDRA OLIVA TRANSFERED TO [id number].
--- NOTE | 2019-12-10 17:04 | NUR ---
REPORT RC'VD FROM OMAR NORRIS. PT MOVED TO ROOM 17 FOR HOUSE CONVENIENCE. PT UNDERSTANDS PLAN FOR ADMISSION AND SURGERY. A&OX4, STABLE AT THIS TIME.
--- NOTE | 2019-12-10 17:24 | NUR ---
TASK RN: PT HOOKED UP TO BP, CONT PULSE OX AND CONNECTED TO WALL O2. ELEVATED PT HOB PER HER REQUEST, PT STATES ADEQUATE PAIN RELIEF AT THIS TIME. CALL LIGHT IN REACH, NO OTHER NEEDS AT THIS TIME
--- NOTE | 2019-12-10 17:48 | NUR ---
ORTHOPEDIC SURGEON AT .
[2019-12-10] MEDS ORDERED: SODIUM CHLORIDE FLUSH 10ML SYR IVF PRN (18:00)
--- NOTE | 2019-12-10 18:02 | NUR ---
ADMITTING MD AT . [facility] INTACT TO LLE.
[2019-12-10] MEDS ORDERED: ONDANSETRON 2MG/ML, 2ML IVPush PRN (18:30)
[2019-12-10] MEDS ORDERED: BISACODYL 10 MG SUPP PR PRN (18:30)
[2019-12-10] MEDS: NICOTINE 14MG/24 HR PATCH.TD24 TD SCH ×2 (18:30→21:57)
[2019-12-10] MEDS: morphine SULFATE 10 MG/ML, 1ML IVPush PRN ×2 (18:34→23:55)
--- NOTE | 2019-12-10 18:41 | NUR ---
PT MEDICATED WITH MORPHINE 3MG PER PRN ORDERS. Addendum: 12/10/19 at 1845 by HBENSON FOR L LEG PAIN.
--- NOTE | 2019-12-10 19:13 | NUR ---
Pt to be admitted to peds (medical overflow), room 303. Report called to Gina.
[2019-12-10 20:00] VITALS: BP 140/97
[2019-12-10] MEDS: DIVALPROEX 250 MG TABLET.DR PO SCH (21:57)
[2019-12-10] MEDS: SODIUM CHLORIDE FLUSH 10ML SYR IVF SCH (21:57)
[2019-12-10] MEDS: CARVEDILOL 6.25 MG TABLET PO SCH (21:57)
[2019-12-10] MEDS: GABAPENTIN 100 MG CAPSULE PO SCH (21:57)
[2019-12-10] MEDS: OXYcodone IR 5MG TABLET PO PRN (21:59)
[2019-12-11 02:00] VITALS: BP 104/78
[2019-12-11] MEDS: ALENDRONATE 10 MG TABLET PO SCH ×2 (06:30→06:32)
[2019-12-11 06:56] LABS: ANION GAP 6 mmol/L (5-15); CALCIUM 9.4 mg/dL (8.5-10.1); CHLORIDE 99 mmol/L (98-107)
[2019-12-11 06:57] LABS: CREATININE 1.17 mg/dL (0.55-1.02)
[2019-12-11 08:04] VITALS: BP 84/66
[2019-12-11] MEDS ORDERED: SODIUM CHLORIDE 0.9% 1,000ML IVBOLUS ONE (08:30)
[2019-12-11] MEDS: DIVALPROEX 250 MG TABLET.DR PO SCH ×2 (09:00→22:58)
[2019-12-11] MEDS: GABAPENTIN 100 MG CAPSULE PO SCH ×3 (09:00→22:59)
[2019-12-11] MEDS: ISOSORBIDE MONONITRATE ER 60 MG TABLET PO SCH (09:00)
[2019-12-11] MEDS: CARVEDILOL 6.25 MG TABLET PO SCH ×2 (09:00→21:00)
[2019-12-11] MEDS: MULTIVITAMINS/MINERALS TABLET PO SCH (09:00)
[2019-12-11] MEDS: SODIUM CHLORIDE FLUSH 10ML SYR IVF SCH ×2 (09:00→22:57)
[2019-12-11] MEDS: SENNA/DOCUSATE TABLET PO SCH (09:00)
[2019-12-11] MEDS: LISINOPRIL 40 MG TABLET PO SCH (09:00)
[2019-12-11] MEDS: CALCIUM CARBONATE 500 MG TABLET PO SCH (09:00)
[2019-12-11] MEDS: ALLOPURINOL 100 MG TABLET PO SCH (09:00)
[2019-12-11 09:30] VITALS: BP 99/66
[2019-12-11 09:55] LABS: MEAN CORPUSCULAR HEMOGLOBIN 33.5 pg (27.0-34.8); MEAN CORPUSCULAR HGB CONC 33.1 g/dL (32.4-35.8); MEAN CORPUSCULAR VOLUME 101.3 fL (80-100); MEAN PLATELET VOLUME 8.7 fL (7.4-10.4); PLATELET COUNT 124 x10^3/uL (130-400); RED BLOOD COUNT 4.36 x10^6/uL (3.82-5.3); RED CELL DISTRIBUTION WIDTH 14.7 % (9.6-15.2)
[2019-12-11 09:56] LABS: MD YES
[2019-12-11 09:59] LABS: BANDS%(MANUAL) 18 % (0-7); LYMPH#(MANUAL) 0.73 x10^3/uL (1-3.4); LYMPHS% (MANUAL) 6 % (22-44); MONOS#(MANUAL) 0.85 x10^3/uL (0.3-2.7); MONOS% (MANUAL) 7 % (2-9); SEG#(MANUAL) 8.42 x10^3/uL (1.8-6.8); SEGS% (MANUAL) 69 % (42-75)
[2019-12-11 10:01] LABS: <PLATELET ESTIMATE> DECREASED; <PLT MORPHOLOGY> NORMAL PLT MORPH
[2019-12-11 11:16] VITALS: BP 88/60
[2019-12-11] MEDS ORDERED: GABAPENTIN 300 MG CAPSULE ONE (13:19)
[2019-12-11] MEDS ORDERED: ACETAMINOPHEN 500 MG TABLET ONE (13:19)
[2019-12-11] MEDS ORDERED: MEPERIDINE/PF 25MG/ML,1ML IVPush PRN (13:30)
[2019-12-11] MEDS ORDERED: ACETAMINOPHEN 500 MG TABLET PO ONE (13:30)
[2019-12-11] MEDS ORDERED: hydrALAzine 20 MG/ML, 1ML IV PRN (13:30)
[2019-12-11] MEDS ORDERED: LABETALOL 5MG/ML, 20ML IV PRN (13:30)
[2019-12-11] MEDS ORDERED: OXYcodone 5 MG/5 ML ORAL.SOL UDC PO PRN (13:30)
[2019-12-11] MEDS ORDERED: MORPHINE SULFATE 4 MG/ML, 1ML IVPush PRN (13:30)
[2019-12-11] MEDS ORDERED: FENTANYL PF 100 MCG/2ML IV PRN (13:30)
[2019-12-11] MEDS ORDERED: GABAPENTIN 300 MG CAPSULE PO ONE (13:30)
[2019-12-11] MEDS ORDERED: HYDROmorphone 2 MG/ML, 1ML IVPush PRN (13:30)
[2019-12-11] MEDS ORDERED: PROMETHAZINE 25 MG/ML, 1ML IV PRN (13:30)
[2019-12-11] MEDS ORDERED: FENTANYL PF 250 MCG/5ML ONE (13:30)
[2019-12-11] MEDS ORDERED: HALOPERIDOL 5 MG/ML IV PRN (13:30)
[2019-12-11] MEDS ORDERED: ROCURONIUM 10MG/ML,5ML ONE (13:34)
[2019-12-11] MEDS ORDERED: PROPOFOL 10 MG/ML, 20ML ONE (13:34)
[2019-12-11] MEDS ORDERED: GLYCOPYRROLATE 0.2MG/1ML, 5ML ONE (13:34)
[2019-12-11] MEDS ORDERED: ONDANSETRON 2MG/ML, 2ML ONE (13:34)
[2019-12-11] MEDS ORDERED: CEFAZOLIN 1,000 MG ONE (13:34)
[2019-12-11] MEDS ORDERED: NEOSTIGMINE 1 MG/ML, 10ML ONE (13:34)
[2019-12-11] MEDS ORDERED: DEXAMETHASONE 4 MG/ML, 1ML ONE (13:34)
[2019-12-11] MEDS ORDERED: EPHEDRINE 50 MG/ML, 1ML ONE (14:17)
[2019-12-11 17:31] LABS: MEAN CORPUSCULAR HEMOGLOBIN 33.3 pg (27.0-34.8); MEAN PLATELET VOLUME 8.4 fL (7.4-10.4); PLATELET COUNT 110 x10^3/uL (130-400); RED BLOOD COUNT 3.89 x10^6/uL (3.82-5.3); RED CELL DISTRIBUTION WIDTH 14.6 % (9.6-15.2)
[2019-12-11 18:18] LABS: MD YES
[2019-12-11 18:20] LABS: BAND#(MANUAL) 2.09 x10^3/uL; BANDS%(MANUAL) 15 % (0-7); EOS#(MANUAL) 0.14 x10^3/uL (0.0-0.4); EOS% (MANUAL) 1 % (1-7); LYMPH#(MANUAL) 0.56 x10^3/uL (1-3.4); LYMPHS% (MANUAL) 4 % (22-44); MONOS#(MANUAL) 0.42 x10^3/uL (0.3-2.7); MONOS% (MANUAL) 3 % (2-9); SEGS% (MANUAL) 77 % (42-75)
[2019-12-11 18:21] LABS: <PLATELET ESTIMATE> DECREASED; <PLT MORPHOLOGY> NORMAL PLT MORPH; ANISOCYTOSIS 1+
[2019-12-11] MEDS: NICOTINE 14MG/24 HR PATCH.TD24 TD SCH (18:30)
[2019-12-11 19:30] VITALS: BP 92/61
[2019-12-11] MEDS: CEFAZOLIN PMX 2GM/50ML 50 ML IVPB SCH (22:58)
[2019-12-12] VITALS (9 sets, daily range): BP systolic 68–112; BP diastolic 32–70
[2019-12-12] MEDS ORDERED: SODIUM CHLORIDE 0.9%, 250ML IVBOLUS ONE
[2019-12-12 06:00] LABS: MEAN CORPUSCULAR HEMOGLOBIN 33.3 pg (27.0-34.8); MEAN CORPUSCULAR HGB CONC 33.3 g/dL (32.4-35.8); MEAN CORPUSCULAR VOLUME 100.1 fL (80-100); MEAN PLATELET VOLUME 8.6 fL (7.4-10.4); PLATELET COUNT 100 x10^3/uL (130-400); RED BLOOD COUNT 3.58 x10^6/uL (3.82-5.3); RED CELL DISTRIBUTION WIDTH 14.6 % (9.6-15.2)
[2019-12-12 06:11] LABS: ALBUMIN 2.5 g/dL (3.4-5.0); ANION GAP 7 mmol/L (5-15); CALCIUM 9.1 mg/dL (8.5-10.1); CHLORIDE 105 mmol/L (98-107); CREATININE 1.49 mg/dL (0.55-1.02)
[2019-12-12] MEDS: CEFAZOLIN PMX 2GM/50ML 50 ML IVPB SCH (06:23)
[2019-12-12] MEDS: HEPARIN 5,000 UNITS/ML, 1ML SQ SCH ×3 (06:23→22:50)
[2019-12-12] MEDS: ALENDRONATE 10 MG TABLET PO SCH (06:23)
[2019-12-12 06:35] LABS: MD YES
[2019-12-12 06:37] LABS: BAND#(MANUAL) 0.89 x10^3/uL; BANDS%(MANUAL) 8 % (0-7); LYMPH#(MANUAL) 0.78 x10^3/uL (1-3.4); LYMPHS% (MANUAL) 7 % (22-44); MONOS#(MANUAL) 0.67 x10^3/uL (0.3-2.7); MONOS% (MANUAL) 6 % (2-9); SEG#(MANUAL) 8.77 x10^3/uL (1.8-6.8); SEGS% (MANUAL) 79 % (42-75)
[2019-12-12 06:38] LABS: <PLATELET ESTIMATE> DECREASED; <PLT MORPHOLOGY> NORMAL PLT MORPH; ANISOCYTOSIS 1+
[2019-12-12] MEDS: OXYcodone IR 5MG TABLET PO PRN ×2 (06:45→11:16)
[2019-12-12] MEDS: SENNA/DOCUSATE TABLET PO SCH (09:00)
[2019-12-12] MEDS: SODIUM CHLORIDE FLUSH 10ML SYR IVF SCH ×2 (09:09→21:21)
[2019-12-12] MEDS: LISINOPRIL 40 MG TABLET PO SCH (09:15)
[2019-12-12] MEDS: DIVALPROEX 250 MG TABLET.DR PO SCH ×2 (09:15→21:21)
[2019-12-12] MEDS: MULTIVITAMINS/MINERALS TABLET PO SCH (09:15)
[2019-12-12] MEDS: CALCIUM CARBONATE 500 MG TABLET PO SCH (09:15)
[2019-12-12] MEDS: GABAPENTIN 100 MG CAPSULE PO SCH ×3 (09:15→21:21)
[2019-12-12] MEDS: ISOSORBIDE MONONITRATE ER 60 MG TABLET PO SCH (09:15)
[2019-12-12] MEDS: ALLOPURINOL 100 MG TABLET PO SCH (09:16)
[2019-12-12] MEDS: CARVEDILOL 6.25 MG TABLET PO SCH ×2 (09:16→21:00)
[2019-12-12] MEDS ORDERED: SODIUM CHLORIDE 0.9% 1,000ML IVBOLUS ONE ×2 (14:30→18:00)
[2019-12-12] MEDS: NICOTINE 14MG/24 HR PATCH.TD24 TD SCH (17:31)
[2019-12-13 02:20] VITALS: BP 101/65
[2019-12-13] MEDS: HEPARIN 5,000 UNITS/ML, 1ML SQ SCH ×3 (06:43→21:53)
[2019-12-13] MEDS: ALENDRONATE 10 MG TABLET PO SCH (06:43)
[2019-12-13 07:43] VITALS: BP 113/75
[2019-12-13] MEDS: ALLOPURINOL 100 MG TABLET PO SCH (09:04)
[2019-12-13] MEDS: SENNA/DOCUSATE TABLET PO SCH (09:04)
[2019-12-13] MEDS: ISOSORBIDE MONONITRATE ER 60 MG TABLET PO SCH (09:04)
[2019-12-13] MEDS: CALCIUM CARBONATE 500 MG TABLET PO SCH (09:04)
[2019-12-13] MEDS: GABAPENTIN 100 MG CAPSULE PO SCH ×3 (09:04→21:52)
[2019-12-13] MEDS: MULTIVITAMINS/MINERALS TABLET PO SCH (09:04)
[2019-12-13] MEDS: DIVALPROEX 250 MG TABLET.DR PO SCH ×2 (09:04→21:52)
[2019-12-13] MEDS: SODIUM CHLORIDE FLUSH 10ML SYR IVF SCH ×2 (09:05→21:00)
[2019-12-13 09:27] VITALS: BP 107/62
[2019-12-13 11:56] LABS: CULTURE INDICATED? YES; MICROSCOPIC INDICATED
[2019-12-13] MEDS: POLYETHYLENE GLYCOL 17 GM PACKET PO PRN (14:05)
[2019-12-13 14:13] VITALS: BP 90/64
[2019-12-13] MEDS: CEFTRIAXONE PMX 2GM/50ML 50 ML IV SCH (16:19)
[2019-12-13] MEDS ORDERED: SODIUM CHLORIDE 0.9% 1,000 ML IV SCH (17:00)
[2019-12-13 17:43] VITALS: BP 116/78
[2019-12-13] MEDS: METOPROLOL TARTRATE 25 MG TAB PO SCH (17:46)
[2019-12-13] MEDS: NICOTINE 14MG/24 HR PATCH.TD24 TD SCH (18:00)
[2019-12-13 19:12] VITALS: BP 96/66
[2019-12-14 00:53] VITALS: BP 129/78
[2019-12-14 05:04] VITALS: BP 116/72
[2019-12-14] MEDS: ALENDRONATE 10 MG TABLET PO SCH (05:10)
[2019-12-14] MEDS: METOPROLOL TARTRATE 25 MG TAB PO SCH ×2 (05:10→18:22)
[2019-12-14] MEDS: HEPARIN 5,000 UNITS/ML, 1ML SQ SCH ×3 (05:10→21:52)
[2019-12-14 05:21] LABS: BASOPHILS # (AUTO) 0.04 x10^3/uL (0-0.1); BASOPHILS % (AUTO) 1 % (0-1); EOSINOPHILS % (AUTO) 3 % (1-7); LYMPHOCYTES # (AUTO) 1.17 x10^3/uL (1-3.4); LYMPHOCYTES % (AUTO) 17 % (22-44); MD NO; MEAN CORPUSCULAR HEMOGLOBIN 33.4 pg (27.0-34.8); MEAN CORPUSCULAR HGB CONC 33.3 g/dL (32.4-35.8); MEAN CORPUSCULAR VOLUME 100.4 fL (80-100); MEAN PLATELET VOLUME 8.5 fL (7.4-10.4); MONOCYTES # (AUTO) 0.54 x10^3/uL (0.2-0.8); MONOCYTES % (AUTO) 8 % (2-9); NEUTROPHILS # (AUTO) 4.98 x10^3/uL (1.8-6.8); NEUTROPHILS % (AUTO) 72 % (42-75); PLATELET COUNT 134 x10^3/uL (130-400); RED BLOOD COUNT 2.85 x10^6/uL (3.82-5.3); RED CELL DISTRIBUTION WIDTH 14.7 % (9.6-15.2)
[2019-12-14 05:25] LABS: ALBUMIN 2.2 g/dL (3.4-5.0); ANION GAP 6 mmol/L (5-15); CALCIUM 8.9 mg/dL (8.5-10.1); CHLORIDE 107 mmol/L (98-107); CREATININE 0.79 mg/dL (0.55-1.02)
[2019-12-14 05:26] LABS: ALANINE AMINOTRANSFERASE < 6 U/L (12-78)
[2019-12-14 05:28] LABS: ALKALINE PHOSPHATASE 43 U/L (45-117); BILIRUBIN,TOTAL 0.5 mg/dL (0.2-1.0); TOTAL PROTEIN 5.4 g/dL (6.4-8.2)
[2019-12-14 07:18] VITALS: BP 119/87
[2019-12-14] MEDS: DIVALPROEX 250 MG TABLET.DR PO SCH ×2 (08:51→21:52)
[2019-12-14] MEDS: MULTIVITAMINS/MINERALS TABLET PO SCH (08:51)
[2019-12-14] MEDS: CALCIUM CARBONATE 500 MG TABLET PO SCH (08:51)
[2019-12-14] MEDS: SENNA/DOCUSATE TABLET PO SCH (08:51)
[2019-12-14] MEDS: ISOSORBIDE MONONITRATE ER 30 MG TABLET PO SCH (08:51)
[2019-12-14] MEDS: ALLOPURINOL 100 MG TABLET PO SCH (08:52)
[2019-12-14] MEDS: GABAPENTIN 100 MG CAPSULE PO SCH ×3 (08:52→21:52)
[2019-12-14] MEDS: SODIUM CHLORIDE FLUSH 10ML SYR IVF SCH ×2 (09:00→21:00)
[2019-12-14] MEDS ORDERED: POTASSIUM PHOSPHATE 44 MEQ in SODIUM CHLORIDE 0.9% 500 ML IV SCH (09:30)
[2019-12-14] MEDS ORDERED: MAGNESIUM SULFATE PMX 4GM/100M 100 ML IV ONE (10:00)
[2019-12-14 13:22] VITALS: BP 118/72
[2019-12-14] MEDS: OXYcodone IR 5MG TABLET PO PRN (13:30)
[2019-12-14] MEDS: CEFTRIAXONE PMX 2GM/50ML 50 ML IV SCH (16:30)
[2019-12-14] MEDS: SODIUM PHOSPHATE 40 MEQ in SODIUM CHLORIDE 0.9% 500 ML IV SCH (16:55)
[2019-12-14] MEDS: NICOTINE 14MG/24 HR PATCH.TD24 TD SCH (18:15)
[2019-12-14 18:23] VITALS: BP 116/75
[2019-12-14] MEDS: SODIUM CHLORIDE 0.9% 1,000 ML IV SCH (19:00)
[2019-12-14] MEDS ORDERED: SODIUM CHLORIDE 0.9% 1,000 ML IV SCH (19:00)
[2019-12-14] MEDS: POLYETHYLENE GLYCOL 17 GM PACKET PO PRN (21:52)
[2019-12-15 00:30] VITALS: BP 155/104
[2019-12-15] MEDS: SODIUM PHOSPHATE 40 MEQ in SODIUM CHLORIDE 0.9% 500 ML IV SCH (04:16)
[2019-12-15] MEDS: SODIUM CHLORIDE 0.9% 1,000 ML IV SCH ×2 (05:00→15:00)
[2019-12-15 05:17] LABS: ALBUMIN 2.2 g/dL (3.4-5.0); ANION GAP 5 mmol/L (5-15); CALCIUM 8.2 mg/dL (8.5-10.1); CHLORIDE 107 mmol/L (98-107)
[2019-12-15 05:21] LABS: ALKALINE PHOSPHATASE 51 U/L (45-117); BILIRUBIN,TOTAL 0.7 mg/dL (0.2-1.0); TOTAL PROTEIN 5.1 g/dL (6.4-8.2)
[2019-12-15 05:24] LABS: ALANINE AMINOTRANSFERASE < 6 U/L (12-78)
[2019-12-15 05:33] LABS: MEAN CORPUSCULAR HEMOGLOBIN 33.8 pg (27.0-34.8); MEAN CORPUSCULAR HGB CONC 33.9 g/dL (32.4-35.8); MEAN CORPUSCULAR VOLUME 99.9 fL (80-100); PLATELET COUNT 166 x10^3/uL (130-400); RED BLOOD COUNT 2.57 x10^6/uL (3.82-5.3); RED CELL DISTRIBUTION WIDTH 14.7 % (9.6-15.2)
[2019-12-15 05:38] VITALS: BP 112/74
[2019-12-15] MEDS: ALENDRONATE 10 MG TABLET PO SCH (05:45)
[2019-12-15] MEDS: HEPARIN 5,000 UNITS/ML, 1ML SQ SCH ×2 (05:45→13:29)
[2019-12-15] MEDS: METOPROLOL TARTRATE 25 MG TAB PO SCH (05:45)
[2019-12-15] MEDS: ACETAMINOPHEN 325 MG TABLET PO PRN ×2 (05:45→16:31)
[2019-12-15 05:59] LABS: BASOPHILS # (AUTO) 0.03 x10^3/uL (0-0.1); BASOPHILS % (AUTO) 0 % (0-1); EOSINOPHILS # (AUTO) 0.19 x10^3/uL (0-0.4); EOSINOPHILS % (AUTO) 2 % (1-7); LYMPHOCYTES % (AUTO) 11 % (22-44); MD SCAN; MONOCYTES # (AUTO) 0.72 x10^3/uL (0.2-0.8); MONOCYTES % (AUTO) 8 % (2-9); NEUTROPHILS # (AUTO) 6.93 x10^3/uL (1.8-6.8); NEUTROPHILS % (AUTO) 78 % (42-75)
[2019-12-15 07:10] VITALS: BP 110/71
[2019-12-15] MEDS: ISOSORBIDE MONONITRATE ER 30 MG TABLET PO SCH (08:16)
[2019-12-15] MEDS: DIVALPROEX 250 MG TABLET.DR PO SCH (08:16)
[2019-12-15] MEDS: SENNA/DOCUSATE TABLET PO SCH (08:16)
[2019-12-15] MEDS: POLYETHYLENE GLYCOL 17 GM PACKET PO PRN (08:16)
[2019-12-15] MEDS: CALCIUM CARBONATE 500 MG TABLET PO SCH (08:17)
[2019-12-15] MEDS: SODIUM CHLORIDE FLUSH 10ML SYR IVF SCH (08:17)
[2019-12-15] MEDS: ALLOPURINOL 100 MG TABLET PO SCH (08:17)
[2019-12-15] MEDS: MULTIVITAMINS/MINERALS TABLET PO SCH (08:17)
[2019-12-15] MEDS: GABAPENTIN 100 MG CAPSULE PO SCH ×2 (08:17→16:31)
[2019-12-15] MEDS ORDERED: ALPR0.254 PO (10:19)
[2019-12-15] MEDS ORDERED: SULF1TAB24 PO (10:19)
[2019-12-15] MEDS ORDERED: TRAM50TA2 PO ×2 (10:19→11:20)
[2019-12-15] MEDS ORDERED: ACET325T26 PO (10:19)
[2019-12-15] MEDS ORDERED: ONDA-89 PO ×2 (10:19→11:20)
[2019-12-15] MEDS ORDERED: NICO-486 TD (10:19)
[2019-12-15] MEDS ORDERED: OXYC5TAB3 PO (10:19)
[2019-12-15] MEDS ORDERED: POLY17PO5 PO (10:19)
[2019-12-15] MEDS ORDERED: LACT1TAB13 PO (10:19)
[2019-12-15] MEDS ORDERED: METO25TA91 PO (10:19)
[2019-12-15] MEDS ORDERED: ALEN70TA6 PO (11:22)
[2019-12-15 14:02] VITALS: BP 130/86
[2019-12-15 14:45] VITALS: BP 115/81
[2019-12-15] MEDS: CEFTRIAXONE PMX 2GM/50ML 50 ML IV SCH (16:25)
== END 2019-12-15 17:25 | DRG 480 ==
LOC: ED 15:33 → EDIP 16:58 → 3WST 19:40 → 4NE 12-11 19:30
PROVIDERS: ADMIT Hospitalist; ATTEND Family Medicine
PROC: 0QS906Z Reposition Left Femoral Shaft with Intramedullary Internal Fixation Device, Open Approach (ICD-10-PCS; principal; 2019-12-11 13:45)
DX: S72.342A Displaced spiral fracture of shaft of left femur, initial encounter for closed fracture (principal); A41.9 Sepsis, unspecified organism; N17.0 Acute kidney failure with tubular necrosis; E46 Unspecified protein-calorie malnutrition; I50.32 Chronic diastolic (congestive) heart failure; N39.0 Urinary tract infection, site not specified; E87.1 Hypo-osmolality and hyponatremia; G40.909 Epilepsy, unspecified, not intractable, without status epilepticus; J44.9 Chronic obstructive pulmonary disease, unspecified; I11.0 Hypertensive heart disease with heart failure; E83.42 Hypomagnesemia; K21.9 Gastro-esophageal reflux disease without esophagitis; F41.9 Anxiety disorder, unspecified; Z96.641 Presence of right artificial hip joint; E78.5 Hyperlipidemia, unspecified; E83.39 Other disorders of phosphorus metabolism; F17.210 Nicotine dependence, cigarettes, uncomplicated; M81.0 Age-related osteoporosis without current pathological fracture; S50.12XA Contusion of left forearm, initial encounter; Z90.710 Acquired absence of both cervix and uterus; Z82.49 Family history of ischemic heart disease and other diseases of the circulatory system; W01.0XXA Fall on same level from slipping, tripping and stumbling without subsequent striking against object, initial encounter; Y93.89 Activity, other specified; Y92.000 Kitchen of unspecified non-institutional (private) residence as the place of occurrence of the external cause; Y99.8 Other external cause status; I95.9 Hypotension, unspecified; R00.0 Tachycardia, unspecified
CPT/HCPCS: 29505; 36415; 71045; 76000; 80048; 80053; 81001; 82040; 83735; 84100; 85025; 85610; 85730; 87040; 87077; 87086; 87186; 93005; 96361; 96374; 96375; C1713; G0378; J0690; J0696; J1100; J1644; J2405; J2704; J2710; J3010; J0360; J2270; J3475; J7030; J7040; J7050

== ENCOUNTER 2020-02-17 11:07 | Emergency (ER) | payer MEDICARE, OTHER ==
[~2020-02-17] VITALS: Ht 154.9 cm; Wt 48.0 kg
[~2020-02-17 11:07] MED LIST changes: +ACET325T26 PO; +ALEN70TA6 PO; +ALPR0.254 PO; +LACT1TAB13 PO; +METO25TA91 PO; +NICO-486 TD; +ONDA-89 PO; +OXYC5TAB3 PO; +SULF1TAB24 PO
--- NOTE | 2020-02-17 11:48 | NUR ---
patient arrives with pain to left lower leg and swelling. she arrives from home with remsa. she broke left femur and had surgery in past three months. in the last few days she has gotten increasing pain and swelling in left lower leg.
[2020-02-17 11:56] LABS: BASOPHILS # (AUTO) 0.02 x10^3/uL (0-0.1); BASOPHILS % (AUTO) 0 % (0-1); EOSINOPHILS # (AUTO) 0.17 x10^3/uL (0-0.4); EOSINOPHILS % (AUTO) 2 % (1-7); LYMPHOCYTES # (AUTO) 1.67 x10^3/uL (1-3.4); LYMPHOCYTES % (AUTO) 23 % (22-44); MD NO; MEAN CORPUSCULAR HEMOGLOBIN 30.3 pg (27.0-34.8); MEAN CORPUSCULAR HGB CONC 32.8 g/dL (32.4-35.8); MEAN CORPUSCULAR VOLUME 92.6 fL (80-100); MONOCYTES # (AUTO) 0.47 x10^3/uL (0.2-0.8); MONOCYTES % (AUTO) 7 % (2-9); NEUTROPHILS # (AUTO) 4.87 x10^3/uL (1.8-6.8); NEUTROPHILS % (AUTO) 68 % (42-75); PLATELET COUNT 264 x10^3/uL (130-400); RED BLOOD COUNT 4.41 x10^6/uL (3.82-5.3); RED CELL DISTRIBUTION WIDTH 16.4 % (9.6-15.2)
[2020-02-17 12:03] LABS: ALBUMIN 2.9 g/dL (3.4-5.0); ANION GAP 5 mmol/L (5-15); CHLORIDE 99 mmol/L (98-107); CREATININE 0.75 mg/dL (0.55-1.02); PROTHROMBIN TIME 10.6 Seconds (9.6-11.5)
[2020-02-17 12:53] VITALS: BP 125/78
--- NOTE | 2020-02-17 12:54 | NUR ---
patient getting femur xray
--- NOTE | 2020-02-17 13:13 | NUR ---
got patient on bedpan and got her crackers. she is awaiting outcome.
== END 2020-02-17 14:18 | disposition home or self-care (01) ==
LOC: ED 13:01
DX: R60.0 Localized edema (principal); M79.672 Pain in left foot; M25.562 Pain in left knee; J44.9 Chronic obstructive pulmonary disease, unspecified; I11.0 Hypertensive heart disease with heart failure; I50.9 Heart failure, unspecified
CPT/HCPCS: 36415; 80048; 82040; 85025; 85610; 85730; 99285

== ENCOUNTER 2020-07-17 19:30 | Inpatient (IN) | payer MEDICARE, OTHER ==
[~2020-07-17] VITALS: Ht 152.4 cm; Wt 50.2 kg
[~2020-07-17 19:30] MED LIST changes: -CALC-666 PO; +CALC500T14 PO
--- NOTE | 2020-07-17 19:46 | NUR ---
ASSUMED CARE OF PATIENT. PATIENT SUNSHINE REMSA FOR A GLF. PT IS NOT SURE WHY SHE FELL. NO LOC. PT REPORTS SHE HAS HAD TWO FALLS IN THE LAST THREE DAYS. PT DOES ADMIT SHE HAS HAD A COUPLE DRINKS TONIGHT. VS STABLE. RAYMOND DELGADO IN ROOM. CALL LIGHT IN PLACE. WILL CONTINUE TO MONITOR.
[2020-07-17] MEDS ORDERED: DIPH,PERTUSS(ACELL),TET VAC/PF 0.5 ML IM-VACC ONE ×2 (20:00→20:16)
[2020-07-17] MEDS ORDERED: L.E.T SOLUTION TP ONE ×2 (20:00→20:52)
--- NOTE | 2020-07-17 20:35 | NUR ---
PT WENT TO CT.
[2020-07-17 20:39] LABS: BASOPHILS # (AUTO) 0.05 x10^3/uL (0-0.1); BASOPHILS % (AUTO) 1 % (0-1); EOSINOPHILS % (AUTO) 5 % (1-7); LYMPHOCYTES % (AUTO) 21 % (22-44); MD NO; MEAN CORPUSCULAR HEMOGLOBIN 31.9 pg (27.0-34.8); MEAN CORPUSCULAR HGB CONC 32.2 g/dL (32.4-35.8); MEAN CORPUSCULAR VOLUME 98.9 fL (80-100); MEAN PLATELET VOLUME 8.2 fL (7.4-10.4); MONOCYTES # (AUTO) 0.63 x10^3/uL (0.2-0.8); MONOCYTES % (AUTO) 10 % (2-9); NEUTROPHILS % (AUTO) 64 % (42-75); PLATELET COUNT 141 x10^3/uL (130-400); RED BLOOD COUNT 4.62 x10^6/uL (3.82-5.3); RED CELL DISTRIBUTION WIDTH 16.1 % (9.6-15.2)
[2020-07-17 20:45] LABS: ANION GAP 6 mmol/L (5-15); CALCIUM 9.4 mg/dL (8.5-10.1); CHLORIDE 97 mmol/L (98-107)
--- NOTE | 2020-07-17 20:58 | NUR ---
LET applied to left arm skin tear per RAYMOND Russo VS stable. Daughter called. Daughter reports patient has had loose stool x2 weeks and is taking imodium. RAYMOND Hammer aware.
[2020-07-17] MEDS ORDERED: gabapentin PO (21:02)
--- NOTE | 2020-07-17 21:55 | NUR ---
RAYMOND Russo in room doing wound care
[2020-07-17] MEDS ORDERED: NEOSPORIN OINT. PKT 1 PACKET ONE (22:04)
--- NOTE | 2020-07-17 22:07 | NUR ---
DENTAL TECH IN ROOM DOING WOUND CARE
--- NOTE | 2020-07-17 22:32 | NUR ---
PT IS NOT ABLE TO SAFELY AMBULATE AROUND ROOM. PT NOW RESTING IN BED. VS STABLE. RAYMOND DELGADO.
--- NOTE | 2020-07-17 22:53 | NUR ---
PT DOES NOT KNOW WHAT MEDICATIONS SHE IS ON. PT GAVE A MEDIATION LIST, WRITTING IS TO SMALL TO MAKE OUT.
[2020-07-17] MEDS ORDERED: SODIUM CHLORIDE 0.9% 1,000 ML IV SCH (23:00)
[2020-07-17] MEDS ORDERED: CARV3.122 PO (23:02)
[2020-07-17] MEDS ORDERED: DIVA250T4 PO (23:02)
[2020-07-17] MEDS ORDERED: ISOS60TA36 PO (23:03)
[2020-07-17] MEDS ORDERED: CHOL10003 PO (23:04)
[2020-07-17] MEDS ORDERED: LISI-170 PO (23:04)
[2020-07-17] MEDS ORDERED: ALEN70TA6 PO (23:05)
--- NOTE | 2020-07-17 23:05 | NUR ---
HOSPITALIST IN ROOM
--- NOTE | 2020-07-17 23:10 | NUR ---
WENT OVER MED RECONCILE WITH JENNIFER Hernandez NP
[2020-07-17] MEDS ORDERED: ALENDRONATE 70 MG TABLET PO SCH (23:30)
[2020-07-17] MEDS ORDERED: ACETAMINOPHEN 325 MG TABLET PO PRN (23:30)
[2020-07-17] MEDS ORDERED: ONDANSETRON ODT 4 MG PO PRN (23:30)
[2020-07-17 23:43] LABS: CLOSTRIDIUM DIFFICILE ANTIGEN NEGATIVE; CLOSTRIDIUM DIFFICILE TOXIN NEGATIVE (Negative)
[2020-07-17 23:47] LABS: MICROSCOPIC INDICATED
[2020-07-18] VITALS: BP 128/87
[2020-07-18 00:29] VITALS: BP 116/81
[2020-07-18] MEDS: GABAPENTIN 300 MG CAPSULE PO SCH ×3 (01:05→20:44)
[2020-07-18] MEDS: DIVALPROEX 250 MG TABLET.DR PO SCH ×3 (01:05→20:44)
[2020-07-18 05:23] LABS: ANION GAP 5 mmol/L (5-15); CHLORIDE 100 mmol/L (98-107); CREATININE 0.72 mg/dL (0.55-1.02)
[2020-07-18 05:33] LABS: BASOPHILS # (AUTO) 0.03 x10^3/uL (0-0.1); BASOPHILS % (AUTO) 0 % (0-1); EOSINOPHILS # (AUTO) 0.28 x10^3/uL (0-0.4); EOSINOPHILS % (AUTO) 4 % (1-7); LYMPHOCYTES # (AUTO) 1.66 x10^3/uL (1-3.4); LYMPHOCYTES % (AUTO) 25 % (22-44); MD NO; MEAN CORPUSCULAR HEMOGLOBIN 31.2 pg (27.0-34.8); MEAN CORPUSCULAR HGB CONC 31.6 g/dL (32.4-35.8); MEAN CORPUSCULAR VOLUME 98.7 fL (80-100); MEAN PLATELET VOLUME 8.3 fL (7.4-10.4); MONOCYTES # (AUTO) 0.74 x10^3/uL (0.2-0.8); MONOCYTES % (AUTO) 11 % (2-9); NEUTROPHILS % (AUTO) 59 % (42-75); PLATELET COUNT 126 x10^3/uL (130-400); RED BLOOD COUNT 4.46 x10^6/uL (3.82-5.3); RED CELL DISTRIBUTION WIDTH 15.9 % (9.6-15.2)
[2020-07-18 08:48] VITALS: BP 111/82
[2020-07-18 09:26] LABS: CRYPTOSPORIDIUM ANTIGEN Negative (Negative)
[2020-07-18] MEDS: ALLOPURINOL 100 MG TABLET PO SCH (10:08)
[2020-07-18] MEDS: LISINOPRIL 40 MG TABLET PO SCH (10:08)
[2020-07-18] MEDS: CHOLECALCIFEROL 1,000 UNIT TABLET PO SCH (10:08)
[2020-07-18] MEDS: CARVEDILOL 3.125 MG TABLET PO SCH (10:09)
[2020-07-18] MEDS: ISOSORBIDE MONONITRATE ER 60 MG TABLET PO SCH (10:09)
[2020-07-18 12:26] VITALS: BP 150/100
[2020-07-18 12:58] VITALS: BP 118/84
[2020-07-18] MEDS: NICOTINE 21 MG/24 HR PATCH.TD24 TD SCH (14:39)
[2020-07-18 19:58] VITALS: BP 136/82
[2020-07-19 00:27] VITALS: BP 143/92
[2020-07-19 07:51] LABS: ALBUMIN 2.8 g/dL (3.4-5.0); ANION GAP 6 mmol/L (5-15); CALCIUM 9.1 mg/dL (8.5-10.1); CHLORIDE 105 mmol/L (98-107)
[2020-07-19 07:55] LABS: ALANINE AMINOTRANSFERASE 8 U/L (12-78); ALKALINE PHOSPHATASE 48 U/L (45-117); BILIRUBIN,TOTAL 0.7 mg/dL (0.2-1.0); CREATININE 0.65 mg/dL (0.55-1.02); TOTAL PROTEIN 5.9 g/dL (6.4-8.2)
[2020-07-19 07:58] VITALS: BP 154/100
[2020-07-19] MEDS: CARVEDILOL 3.125 MG TABLET PO SCH (09:30)
[2020-07-19] MEDS: ISOSORBIDE MONONITRATE ER 60 MG TABLET PO SCH (09:30)
[2020-07-19] MEDS: LISINOPRIL 40 MG TABLET PO SCH (09:30)
[2020-07-19] MEDS: CHOLECALCIFEROL 1,000 UNIT TABLET PO SCH (09:30)
[2020-07-19] MEDS: ALLOPURINOL 100 MG TABLET PO SCH (09:30)
[2020-07-19] MEDS: GABAPENTIN 300 MG CAPSULE PO SCH ×2 (09:30→20:18)
[2020-07-19] MEDS: DIVALPROEX 250 MG TABLET.DR PO SCH ×2 (09:30→20:18)
[2020-07-19] MEDS: NICOTINE 21 MG/24 HR PATCH.TD24 TD SCH (13:19)
[2020-07-19 13:24] VITALS: BP 115/84
[2020-07-19 18:53] VITALS: BP 158/99
[2020-07-20 01:51] VITALS: BP 153/102
[2020-07-20 06:55] VITALS: BP 134/91
[2020-07-20] MEDS: ISOSORBIDE MONONITRATE ER 60 MG TABLET PO SCH (08:16)
[2020-07-20] MEDS: CHOLECALCIFEROL 1,000 UNIT TABLET PO SCH (08:16)
[2020-07-20] MEDS: CARVEDILOL 3.125 MG TABLET PO SCH (08:17)
[2020-07-20] MEDS: LISINOPRIL 40 MG TABLET PO SCH (08:17)
[2020-07-20] MEDS: GABAPENTIN 300 MG CAPSULE PO SCH (08:17)
[2020-07-20] MEDS: ALLOPURINOL 100 MG TABLET PO SCH (08:17)
[2020-07-20] MEDS: DIVALPROEX 250 MG TABLET.DR PO SCH (08:18)
[2020-07-20] MEDS ORDERED: NICO-487 TD (12:22)
[2020-07-20 13:06] VITALS: BP 160/110
[2020-07-20] MEDS: NICOTINE 21 MG/24 HR PATCH.TD24 TD SCH (13:35)
[2020-07-20] MEDS ORDERED: DIVALPROEX 250 MG TABLET.DR PO SCH (21:00)
== END 2020-07-20 14:09 | DRG 392 ==
LOC: ED 20:47 → EDIP 23:13 → 3N 07-18 00:33
PROVIDERS: ADMIT Family Medicine; ATTEND Internal Medicine
DX: R19.7 Diarrhea, unspecified (principal); E87.1 Hypo-osmolality and hyponatremia; I50.32 Chronic diastolic (congestive) heart failure; R53.1 Weakness; S00.03XA Contusion of scalp, initial encounter; J44.9 Chronic obstructive pulmonary disease, unspecified; F10.120 Alcohol abuse with intoxication, uncomplicated; F17.210 Nicotine dependence, cigarettes, uncomplicated; F41.1 Generalized anxiety disorder; G40.909 Epilepsy, unspecified, not intractable, without status epilepticus; G89.11 Acute pain due to trauma; I11.0 Hypertensive heart disease with heart failure; I71.4 Abdominal aortic aneurysm, without rupture; K21.9 Gastro-esophageal reflux disease without esophagitis; M81.0 Age-related osteoporosis without current pathological fracture; W01.0XXA Fall on same level from slipping, tripping and stumbling without subsequent striking against object, initial encounter; Y92.000 Kitchen of unspecified non-institutional (private) residence as the place of occurrence of the external cause; Z87.440 Personal history of urinary (tract) infections; Z90.710 Acquired absence of both cervix and uterus; Z90.89 Acquired absence of other organs; S51.811A Laceration without foreign body of right forearm, initial encounter; I35.0 Nonrheumatic aortic (valve) stenosis; D69.6 Thrombocytopenia, unspecified; Z20.828 Contact with and (suspected) exposure to other viral communicable diseases
CPT/HCPCS: 36415; 70450; 72125; 80048; 80053; 81001; 85025; 87046; 87086; 87324; 87328; 87329; 87427; 89055; 90471; 90715; 93005; G0378; J7030